=== PATIENT | female | born 1970 | race Caucasian/White ===

== ENCOUNTER → 2016-09-15 | Outpatient (CLI) | payer OTHER ==
--- NOTE | 2016-09-15 11:00 | US ---
EXAMINATION TYPE: US thyroid st tissue head/neck DATE OF EXAM: 09/15/2016 10:54 AM COMPARISON: NONE CLINICAL HISTORY: hoarseness, laryngitis. GLAND SIZE: Right Lobe: 3.9 x 1.4 x 1.0 cm Overall Parenchyma: homogenous Left Lobe: 3.4 x 1.2 x 1.2 cm Overall Parenchyma: homogeneous Isthmus Thickness: 0.2 cm NODULES RIGHT: # of nodules measured on right: 0 LEFT: # of nodules measured on left: 0 ISTHMUS: # of nodules measured in the isthmus: 0 . Bilateral neck scanned, no abnormal lymphadenopathy noted. IMPRESSION: Normal thyroid SONOGRAPHIC PATTERNS, ESTIMATED MALIGNANCY RISK AND FNA GUIDANCE FOR THYROID NODULES Sonographic Pattern: Benign Ultrasound Features: Purely Cystic Nodules (No Solid Component) Estimated Risk Of Malignancy, %: <1 FNA Size Cutoff (Largest Dimension): No Biopsy Sonographic Pattern: Very Low Suspicion Ultrasound Features: Spongiform Or Partially Cystic Nodules Without Any Of The Sonographic Features Described In Low, Inte rmediate Or High Suspicion Patterns. Estimated Risk Of Malignancy, %: <3 FNA Size Cutoff (Largest Dimension): Recommend FNA At > 2cm Or Observation Without FNA Sonographic Pattern: Low Suspicion Ultrasound Features: Isoechoic Or Hyperechoic Solid Nodule, Or Partially Cystic Nodule With Eccentric Solid Areas, Without Microcalcification, Irregular Margin Or Ete, Or Taller Than Wide Shape. Estimated Risk Of Malignancy, %: 5-10 FNA Size Cutoff (Largest Dimension): Recommend FNA At > 1.5cm Sonographic Pattern: Intermediate Suspicion Ultrasound Features: Hypoechoic Solid Nodule With Smooth Margins Without Microcalcifications, Ete, Or Taller Than Wide Sha pe. Estimated Risk Of Malignancy, %: 10-20 FNA Size Cutoff (Largest Dimension): Recommend FNA At > 1cm Sonographic Pattern: High Suspicion Ultrasound Features: Solid Hypoechoic Nodule Or Solid Hypoechoic Component Of A Partially Cystic Nodule With One Or More O f The Following Features: Irregular Margins (Infiltrative, Microlobulated), Microcalcifications, Tall er Than Wide Shape, Rim Calcifications With Small Extrusive Soft Tissue Component, Evidence Of Ete Estimated Risk Of Malignancy, %: >70-90 FNA Size Cutoff (Largest Dimension): Recommend FNA At > 1cm
== END | disposition home or self-care (01) ==
LOC: RADUSWWP 10:42
PROVIDERS: ATTEND Family Medicine
DX: J04.0 Acute laryngitis (principal); R49.0 Dysphonia
CPT/HCPCS: 76536

== ENCOUNTER 2017-01-15 17:01 | Emergency (ER) | payer OTHER ==
[2017-01-15] MEDS ORDERED: KETOROLAC 30 MG/ML 1 ML VIAL IVP STA (17:43)
[2017-01-15] MEDS ORDERED: SODIUM CHLORIDE 0.9% 1,000 ML IV STA (17:43)
[2017-01-15] MEDS ORDERED: DICYCLOMINE 10 MG/ML 2 ML AMP IM STA ×2 (17:43→19:16)
--- NOTE | 2017-01-15 17:48 | ED ---
Abdominal Pain HPI - General Chief Complaint: Abdominal Pain Stated Complaint: Abd pain Time Seen by Provider: 01/15/17 17:38 Source: patient, RN notes reviewed Mode of arrival: ambulatory - History of Present Illness Initial Comments: 46-year-old female presents to the emergency department with a chief complaint abdominal pain. Patient states epigastric abdominal pain that shoots into her pelvic region. Patient states she bends forward. Patient states that if she presses on the area feels better. Patient states has been no nausea vomiting no changes in bowel or bladder habits with this. Patient denies any fever chills cough cold or anypatient states she was concerned due to her continued pain and discomfort so she thought that she should be evaluated.Patient denies any recent fever, chills, shortness of breath, chest pain, back pain, nausea vomiting, numbness or tingling, dysuria or hematuria, constipation or diarrhea, headaches or visual changes, or any other current symptoms. - Related Data Home Medications Medication Instructions Recorded Confirmed Loratadine [Claritin] 10 mg PO DAILY 01/15/17 01/15/17 Omeprazole 20 mg PO BID 01/15/17 01/15/17 Previous Rx's Medication Instructions Recorded Dicyclomine [Bentyl] 10 mg PO TID #20 capsule 01/15/17 Ibuprofen [Motrin] 600 mg PO Q6HR PRN #20 tab 01/15/17 Allergies Allergy/AdvReac Type Severity Reaction Status Date / Time codeine Allergy Unknown Verified 01/15/17 17:55 Childhood Review of Systems ROS Statement: Those systems with pertinent positive or pertinent negative responses have been documented in the HPI. ROS Other: All systems not noted in ROS Statement are negative. Past Medical History Past Medical History: GERD/Reflux History of Any Multi-Drug Resistant Organisms: None Reported Past Surgical History: Adenoidectomy, Tonsillectomy Additional Past Surgical History / Comment(s): LEFT KNEE Past Psychological History: No Psychological Hx Reported Smoking Status: Never smoker Past Alcohol Use History: None Reported Past Drug Use History: None Reported General Exam - General Exam Comments Initial Comments: General: The patient is awake and alert, in no distress, and does not appear acutely ill. Eye: Pupils are equal, round and reactive to light, extra-ocular movements are intact; there is normal conjunctiva bilaterally. No signs of icterus. Ears, nose, mouth and throat: There are moist mucous membranes and no oral lesions. Neck: The neck is supple, there is no tenderness . Cardiovascular: There is a regular rate and rhythm. No murmur, rub or gallop is appreciated. Respiratory: Lungs are clear to auscultation, respirations are non-labored, breath sounds are equal. No wheezes, stridor, rales, or rhonchi. Gastrointestinal: Soft, non-distended, mild left upper quadrant tenderness of the abdomen without masses or organomegaly noted. There is no rebound or guarding present. No CVA tenderness. Bowel sounds are unremarkable. Back: There is no tenderness to palpation in the midline. There is no obvious deformity. No rashes noted. Musculoskeletal: Normal ROM, no tenderness, There is no pedal edema. There is no calf tenderness or swelling. Sensation intact. Pulses equal bilaterally 2+. Neurological: CN II-XII intact, There are no obvious motor or sensory deficits. Coordination appears grossly intact. Speech is normal. Skin: Skin is warm and dry and no rashes or lesions are noted. Psychiatric: Cooperative, appropriate mood & affect, normal judgment. Course Vital Signs 01/15/17 01/15/17 01/15/17 17:33 18:05 18:36 Temperature 97.8 F 98.0 F 98.2 F Pulse Rate 86 75 83 Respiratory 18 16 16 Rate Blood Pressure 107/78 117/68 113/76 O2 Sat by Pulse 100 95 97 Oximetry Medical Decision Making - Medical Decision Making 46-year-old smokes the emergency department chief complaint abdominal pain. This time labwork was reviewed Acute Processes. Patient's Abdomen Is Soft and Nontender and Reevaluation. This Time We Discussed the Possible Etiologies for the Pain. We Did Discuss Return Parameters and Follow-Up. We Discussed All the Patient's Questions. She Stated That She Understood and Is in Agreement with Plan. This Time She Will Be Discharged Home. - Lab Data Result diagrams: 01/15/17 18:30 01/15/17 18:30 Lab Results 01/15/17 01/15/17 01/15/17 Range/Units 18:30 18:30 18:30 WBC 8.7 (3.8-10.6) k/uL RBC 4.27 (3.80-5.40) m/uL Hgb 13.4 (11.4-16.0) gm/dL Hct 39.2 (34.0-46.0) % MCV 91.8 (80.0-100.0) fL MCH 31.4 (25.0-35.0) pg MCHC 34.2 (31.0-37.0) g/dL RDW 12.1 (11.5-15.5) % Plt Count 198 (150-450) k/uL Neutrophils % 66 % Lymphocytes % 25 % Monocytes % 5 % Eosinophils % 2 % Basophils % 1 % Neutrophils # 5.7 (1.3-7.7) k/uL Lymphocytes # 2.2 (1.0-4.8) k/uL Monocytes # 0.4 (0-1.0) k/uL Eosinophils # 0.2 (0-0.7) k/uL Basophils # 0.1 (0-0.2) k/uL Sodium 140 (137-145) mmol/L Potassium 3.9 (3.5-5.1) mmol/L Chloride 107 (98-107) mmol/L Carbon Dioxide 20 L (22-30) mmol/L Anion Gap 13 mmol/L BUN 15 (7-17) mg/dL Creatinine 0.50 L (0.52-1.04) mg/dL Est GFR (MDRD) Af Amer >60 (>60 ml/min/1.73 sqM) Est GFR (MDRD) Non-Af >60 (>60 ml/min/1.73 sqM) Glucose 96 (74-99) mg/dL Calcium 9.3 (8.4-10.2) mg/dL Total Bilirubin 0.6 (0.2-1.3) mg/dL AST 27 (14-36) U/L ALT 24 (9-52) U/L Alkaline Phosphatase 64 (38-126) U/L Total Protein 7.4 (6.3-8.2) g/dL Albumin 4.4 (3.5-5.0) g/dL Amylase 66 (30-110) U/L Lipase 107 (23-300) U/L Urine Color Yellow Urine Appearance Cloudy H (Clear) Urine pH 5.5 (5.0-8.0) Ur Specific [place] 1.026 (1.001-1.035) Urine Protein Trace H (Negative) Urine Glucose (UA) Negative (Negative) Urine Ketones Negative (Negative) Urine Blood Small H (Negative) Urine Nitrite Negative (Negative) Urine Bilirubin Negative (Negative) Urine Urobilinogen <2.0 (<2.0) mg/dL Ur Leukocyte Esterase Small H (Negative) Urine RBC 4 (0-5) /hpf Urine WBC 6 H (0-5) /hpf Ur Squamous Epith Cells 15 H (0-4) /hpf Amorphous Sediment Few H (None) /hpf Hyaline Casts 3 H (0-2) /lpf Urine Mucus Few H (None) /hpf Urine HCG, Qual (Not Detectd) 01/15/17 Range/Units 18:30 WBC (3.8-10.6) k/uL RBC (3.80-5.40) m/uL Hgb (11.4-16.0) gm/dL Hct (34.0-46.0) % MCV (80.0-100.0) fL MCH (25.0-35.0) pg MCHC (31.0-37.0) g/dL RDW (11.5-15.5) % Plt Count (150-450) k/uL Neutrophils % % Lymphocytes % % Monocytes % % Eosinophils % % Basophils % % Neutrophils # (1.3-7.7) k/uL Lymphocytes # (1.0-4.8) k/uL Monocytes # (0-1.0) k/uL Eosinophils # (0-0.7) k/uL Basophils # (0-0.2) k/uL Sodium (137-145) mmol/L Potassium (3.5-5.1) mmol/L Chloride (98-107) mmol/L Carbon Dioxide (22-30) mmol/L Anion Gap mmol/L BUN (7-17) mg/dL Creatinine (0.52-1.04) mg/dL Est GFR (MDRD) Af Amer (>60 ml/min/1.73 sqM) Est GFR (MDRD) Non-Af (>60 ml/min/1.73 sqM) Glucose (74-99) mg/dL Calcium (8.4-10.2) mg/dL Total Bilirubin (0.2-1.3) mg/dL AST (14-36) U/L ALT (9-52) U/L Alkaline Phosphatase (38-126) U/L Total Protein (6.3-8.2) g/dL Albumin (3.5-5.0) g/dL Amylase (30-110) U/L Lipase (23-300) U/L Urine Color Urine Appearance (Clear) Urine pH (5.0-8.0) Ur Specific [place] (1.001-1.035) Urine Protein (Negative) Urine Glucose (UA) (Negative) Urine Ketones (Negative) Urine Blood (Negative) Urine Nitrite (Negative) Urine Bilirubin (Negative) Urine Urobilinogen (<2.0) mg/dL Ur Leukocyte Esterase (Negative) Urine RBC (0-5) /hpf Urine WBC (0-5) /hpf Ur Squamous Epith Cells (0-4) /hpf Amorphous Sediment (None) /hpf Hyaline Casts (0-2) /lpf Urine Mucus (None) /hpf Urine HCG, Qual Not Detected (Not Detectd) - Radiology Data Radiology results: report reviewed, image reviewed Disposition Clinical Impression: Abdominal pain Disposition: HOME SELF-CARE Condition: Stable Instructions: Abdominal Pain (ED) Additional Instructions: Please use medication as discussed. Please follow up with family doctor if symptoms have not improved over the next two days. Please return to the emergency room if your symptoms increase or worsen or for any other concerns. Prescriptions: Dicyclomine [Bentyl] 10 mg PO TID #20 capsule Ibuprofen [Motrin] 600 mg PO Q6HR PRN #20 tab PRN Reason: Pain Referrals: Obdulia Key MD [Primary Care Provider] - 1-2 days Time of Disposition: 19:32
[2017-01-15 18:06] VITALS: RESP 16
[2017-01-15 18:38] VITALS: TEMP 98.2
[2017-01-15 18:42] LABS: Amorphous Sediment,Urine Few /hpf; Appearance,Urine Cloudy (Clear); Bilirubin,Urine Negative (Negative); Glucose,Urine (UA) Negative (Negative); Ketones,Urine Negative (Negative); Leukocyte Esterase,Urine Small (Negative); Mucus,Urine Few /hpf; Nitrite,Urine Negative (Negative); PH, Urine 5.5 (5.0-8.0); Particle Count 13190; Protein,Urine Trace (Negative); RBC,Urine 4 /hpf (0-5); Specific Gravity,Urine 1.026 (1.001-1.035); Squamous Epithelial Cell,Urine 15 /hpf (0-4); UA Billing (MACRO vs. MICRO) MICRO; Urobilinogen,Urine <2.0 mg/dL (<2.0); WBC,Urine 6 /hpf (0-5)
[2017-01-15 18:54] LABS: ALT 24 U/L (9-52); AST 27 U/L (14-36); Alkaline Phosphatase 64 U/L (38-126); Amylase 66 U/L (30-110); Anion Gap 13 mmol/L; Blood Urea Nitrogen 15 mg/dL (7-17); Calcium 9.3 mg/dL (8.4-10.2); Carbon Dioxide 20 mmol/L (22-30); Chloride 107 mmol/L (98-107); Glucose 96 mg/dL (74-99); Non-African American GFR(MDRD) >60 (>60 ml/min/1.73 sqM); Potassium 3.9 mmol/L (3.5-5.1); Sodium 140 mmol/L (137-145); Total Bilirubin 0.6 mg/dL (0.2-1.3); Total Protein 7.4 g/dL (6.3-8.2)
[2017-01-15 18:57] LABS: Basophils # (A) 0.1 k/uL (0-0.2); Basophils % (A) 1 %; CH 31.6; CHCM 34.5; Eosinophils # (A) 0.2 k/uL (0-0.7); Eosinophils % (A) 2 %; HCT 39.2 % (34.0-46.0); HGB 13.4 gm/dL (11.4-16.0); Luc # (Auto) 0.14; Luc % (Auto) 2; Lymphocytes # (A) 2.2 k/uL (1.0-4.8); Lymphocytes % (A) 25 %; MCH 31.4 pg (25.0-35.0); MCHC 34.2 g/dL (31.0-37.0); MCV 91.8 fL (80.0-100.0); Mean Platelet Volume 9.1; Monocytes # (A) 0.4 k/uL (0-1.0); Monocytes % (A) 5 %; Neutrophils # (A) 5.7 k/uL (1.3-7.7); Neutrophils % (A) 66 %; RBC 4.27 m/uL (3.80-5.40); RDW 12.1 % (11.5-15.5); WBC 8.7 k/uL (3.8-10.6); WBC (Perox) 8.71
--- NOTE | 2017-01-15 19:18 | XR ---
EXAMINATION TYPE: XR KUB DATE OF EXAM: 01/15/2017 7:14 PM COMPARISON: NONE HISTORY: Abdominal pain TECHNIQUE: Upright abdominal radiograph was obtained and a single KUB projection. FINDINGS: There is a nonobstructive bowel gas pattern. There is an S-shaped scoliotic curvature of th e thoracolumbar spine. No radiopaque calculi are seen within the abdomen or pelvis. No gross evidence of organomegaly. IMPRESSION: 1. Nonobstructive bowel gas pattern. 2. No radiopaque calculi within the abdomen or pelvis.
[2017-01-15 20:02] VITALS: BP 132/70; PULSE 81
== END 2017-01-15 20:02 | disposition home or self-care (01) ==
LOC: EC 17:01
DX: R10.12 Left upper quadrant pain (principal); R10.13 Epigastric pain; K21.9 Gastro-esophageal reflux disease without esophagitis; Z79.899 Other long term (current) drug therapy; Z88.5 Allergy status to narcotic agent
CPT/HCPCS: 99284; 96374; 96372; 36415; 80053; 82150; 83690; 85025; 81001; 81025; 74000; J0500; J1885

== ENCOUNTER → 2017-01-24 | Outpatient (CLI) | payer OTHER ==
--- NOTE | 2017-01-24 16:45 | CT ---
EXAMINATION TYPE: CT abdomen pelvis w con DATE OF EXAM: 01/24/2017 4:12 PM REFERENCE: NONE HISTORY: R10.33 Periumbilical Abd Pain HISTORY: Pt states of severe umbilical pain x1 week. REFERENCE: NONE CT DLP: 443.8 mGy Automated exposure control for dose reduction was used. TECHNIQUE: Helical acquisition through the abdomen and pelvis was obtained following the oral ingesti on of with Oral Contrast and following intravenous administration of 100 mL of Omnipaque 300. The tyrell a was reformatted in axial, coronal and sagittal projections. FINDINGS: There is a mild pectus excavatum deformity. Visualized portions of the lungs are clear. There is no pleural or pericardial fluid. The heart is no t enlarged. Within the abdomen, the liver is normal in size. There is an ill-defined 7.1 mm lesion in the posteri or segment of the right lobe of the liver is too small to characterize accurately. The gallbladder is partially contracted. The spleen is normal. Both adrenal glands are normal. There is a 6.7 mm lesion in the lower pole of the left kidney. This is too small to characterize accu rately. The pancreas is unremarkable. There is no significant retroperitoneal, iliac or inguinal adenopathy. There is follicular change in both ovaries. Uterus is unremarkable. The bladder is quite distended. There is no significant diverticular change and there is no radiographic evidence of diverticulitis. The appendix is normal. Small bowel loops are unremarkable. There is no free fluid and no free air. There is an 8.3 mm sclerotic focus in the right side of the sacrum. This likely represents a bone isl and. There is a second 6.1 mm sclerotic focus in the right iliac bone. No other lesions are seen. The re is mild facet arthropathy in the L5-S1 facets. IMPRESSION: 1. ILL-DEFINED 7.1 MM LESION IN THE POSTERIOR SEGMENT OF THE RIGHT LOBE OF THE LIVER. ABDOMINAL ULTRA SOUND IS SUGGESTED. 2. SMALL LESION IN THE LOWER POLE OF THE LEFT KIDNEY. THIS COULD BE FURTHER ASSESSED WITH ULTRASOUND WELL. 3. MILD FACET ARTHROPATHY IN THE L5-S1 FACETS.
== END | disposition home or self-care (01) ==
LOC: RADCTMAIN 15:17
PROVIDERS: ATTEND Family Medicine
DX: K76.9 Liver disease, unspecified (principal); N28.9 Disorder of kidney and ureter, unspecified
CPT/HCPCS: 74177; Q9967

== ENCOUNTER → 2017-06-19 | Outpatient (CLI) | payer OTHER ==
--- NOTE | 2017-06-19 11:54 | US ---
EXAMINATION TYPE: US abdomen complete DATE OF EXAM: 06/19/2017 COMPARISON: CT 2017 CLINICAL HISTORY: Liver Lesion K76.9,N28.1 Kidney Cysts. Patient stated is taking medication for nando rgies, anti anxiety, acid reflux EXAM MEASUREMENTS: Liver Length: 12.8 cm Gallbladder Wall: 0.2 cm CBD: 0.2 cm Spleen: 9.1 cm Right Kidney: 10.1 x 5.8 x 4.5 cm Left Kidney: 11.4 x 4.9 x 5.4 cm Pancreas: Tail obscured by overlying bowel gas Liver: fatty as is hyperechoic to right renal cortex; no liver lesion is seen today due to rib inter ference and gas interference from full stomach Gallbladder: wnl Evidence for sonographic Enciso's sign: No CBD: wnl Spleen: wnl Right Kidney: prominent renal pelvis or extrarenal pelvis Left Kidney: hyperechoic oval focus seen in lower cortex = 0.9 x 0.8 x 0.5cm and may correspond to C T finding (consider finding as angiomyolipoma) . Ectatic lower pole renal vasculature also seen on th e prior CT. Upper IVC: wnl Abd Aorta: wnl Bladder imaged as patient was prepped: bilateral ureteral jets were seen; bladder appears wnl; post void volume = 14.7ml and is wnl. IMPRESSION: 1. 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 2. Mildly coarsened hepatic echotexture most commonly relates to mild hepatic steatosis. The previous ly seen 7 mm hepatic lesion is not demonstrated sonographically. 3. No post void residual within the urinary bladder.
== END | disposition home or self-care (01) ==
LOC: RADUSWWP 10:05
PROVIDERS: ATTEND Family Medicine
DX: N28.9 Disorder of kidney and ureter, unspecified (principal); R93.2 Abnormal findings on diagnostic imaging of liver and biliary tract
CPT/HCPCS: 76700; 76857

== ENCOUNTER → 2017-10-23 | Outpatient (CLI) | payer OTHER | END | disposition home or self-care (01) | LOC: LABMAIN 10:10 | PROVIDERS: ATTEND Family Medicine | DX: R09.81 Nasal congestion (principal); R05 Cough | CPT/HCPCS: 87502 ==

== ENCOUNTER 2018-04-29 12:25 | Emergency (ER) | payer OTHER ==
[2018-04-29 12:44] VITALS: BP 119/78; PULSE 95; RESP 18; TEMP 98.3
--- NOTE | 2018-04-29 13:33 | ED ---
URI HPI - General Chief Complaint: Upper Respiratory Infection Stated Complaint: No voice, Sinus infection Time Seen by Provider: 04/29/18 13:06 Source: patient, RN notes reviewed Mode of arrival: ambulatory Limitations: no limitations - History of Present Illness Initial Comments: 47-year-old female presents emergency Department chief complaint of loss of her voice, sinus congestion. Patient's had recurrent issues with this in the past. She states that she has seen multiple people in the past with no acute findings. Patient states normally she resolves. Patient states that she saw her PCP started on eardrops, promethazine and nystatin because she had evidence of thrush. Patient states that has been one week with no improvement she states that she saw her PCP today and was for her to the emergency Department. Patient reports no fever, chills, fatigue, night sweats, chest pain, shortness breath, headache or dizziness. Patient has no difficulty swallowing. - Related Data Home Medications Medication Instructions Recorded Confirmed Naqqzxlv-Ftiiqjabq-Eq Otic 5 drops BOTH EARS TID 04/29/18 04/29/18 [Cortisporin Otic Soln] Nystatin 100,000 Unit/ml Susp 500,000 unit PO QID 04/29/18 04/29/18 [Mycostatin Oral Susp] Promethazine/Dextromethorphan 5 ml PO Q6H PRN 04/29/18 04/29/18 [Promethazine-Dm Syrup] Sertraline [Zoloft] 50 mg PO DAILY 04/29/18 04/29/18 Vienva 1 tab PO DAILY 04/29/18 04/29/18 Previous Rx's Medication Instructions Recorded Azithromycin [Zithromax Z-pack] 0 mg PO DIRECTED #1 pack 04/29/18 Fluticasone Nasal [place] [Flonase 2 spr EA NOSTRIL DAILY #1 bottle 04/29/18 Nasal [place]] predniSONE 50 mg PO DAILY #5 tab 04/29/18 Allergies Allergy/AdvReac Type Severity Reaction Status Date / Time No Known Allergies Allergy Verified 04/29/18 12:54 Review of Systems ROS Statement: Those systems with pertinent positive or pertinent negative responses have been documented in the HPI. ROS Other: All systems not noted in ROS Statement are negative. Past Medical History Past Medical History: GERD/Reflux History of Any Multi-Drug Resistant Organisms: None Reported Past Surgical History: Adenoidectomy, Tonsillectomy Additional Past Surgical History / Comment(s): LEFT KNEE Past Psychological History: No Psychological Hx Reported Smoking Status: Never smoker Past Alcohol Use History: Occasional Past Drug Use History: None Reported General Exam Limitations: no limitations General appearance: alert, in no apparent distress Head exam: Present: atraumatic, normocephalic, normal inspection Eye exam: Present: normal appearance, PERRL, EOMI. Absent: scleral icterus, conjunctival injection, periorbital swelling ENT exam: Present: normal exam, normal oropharynx, mucous membranes moist, TM's normal bilaterally, normal external ear exam Neck exam: Present: normal inspection, full ROM. Absent: tenderness, meningismus, lymphadenopathy Respiratory exam: Present: normal lung sounds bilaterally. Absent: respiratory distress, wheezes, rales, rhonchi, stridor Cardiovascular Exam: Present: regular rate, normal rhythm, normal heart sounds. Absent: systolic murmur, diastolic murmur, rubs, gallop, clicks Neurological exam: Present: alert, oriented X3, CN II-XII intact Skin exam: Present: warm, dry, intact, normal color. Absent: rash Course Vital Signs 04/29/18 12:40 Temperature 98.3 F Pulse Rate 95 Respiratory 18 Rate Blood Pressure 119/78 O2 Sat by Pulse 99 Oximetry Medical Decision Making - Medical Decision Making 47-year-old female presented for laryngitis symptoms, sinus congestion. Patient 's had recurrent issues she has seen multiple specialists with no acute findings. Patient symptoms may related to viral bacterial infection should be given a short course antibiotics, steroids and Flonase. She can follow-up with ENT and return for any worsening symptoms Disposition Clinical Impression: Acute laryngitis, Sinus congestion Disposition: HOME SELF-CARE Condition: Stable Instructions: Laryngitis (ED) Additional Instructions: Please return to the Emergency Department if symptoms worsen or any other concerns. Prescriptions: Azithromycin [Zithromax Z-pack] 0 mg PO DIRECTED #1 pack Fluticasone Nasal [place] [Flonase Nasal [place]] 2 spr EA NOSTRIL DAILY #1 bottle predniSONE 50 mg PO DAILY #5 tab Is patient prescribed a controlled substance at d/c from ED?: No Referrals: Obdulia Key MD [Primary Care Provider] - 1-2 days Time of Disposition: 14:18
--- NOTE | 2018-04-29 14:10 | XR ---
EXAMINATION TYPE: XR chest 2V DATE OF EXAM: 04/29/2018 COMPARISON: NONE HISTORY: Chest pain TECHNIQUE: Frontal and lateral views of the chest are obtained. FINDINGS: There is no focal air space opacity. No evidence for pneumothorax. No pleural effusion. The cardiac silhouette size is within normal limits. The osseous structures are grossly intact. Thoracic scoliosis convex to the left. IMPRESSION: 1. No acute cardiopulmonary process.
--- NOTE | 2018-04-29 14:10 | XR ---
EXAMINATION TYPE: XR soft tissue neck DATE OF EXAM: 04/29/2018 COMPARISON: NONE HISTORY: TECHNIQUE: 2 views of the soft tissues of the neck are submitted. FINDINGS: The airway is patent. Normal appearing epiglottis. Retropharyngeal soft tissues are withi n normal limits. No evidence for radiopaque foreign body. IMPRESSION: Negative study
== END 2018-04-29 14:33 | disposition home or self-care (01) ==
LOC: EC 12:25
DX: J04.0 Acute laryngitis (principal); R09.81 Nasal congestion; B37.9 Candidiasis, unspecified; Z79.3 Long term (current) use of hormonal contraceptives; Z79.899 Other long term (current) drug therapy; Z90.89 Acquired absence of other organs
CPT/HCPCS: 70360; 71046; 99283

== ENCOUNTER → 2018-07-02 | Outpatient (CLI) | payer OTHER ==
--- NOTE | 2018-07-02 10:29 | CT ---
EXAMINATION TYPE: CT soft tissue neck w con DATE OF EXAM: 07/02/2018 COMPARISON: None HISTORY: Hoarseness and difficulty swallowing for two days with multiple similar episodes over the la st [address] DLP: 318 mGycm CONTRAST: CT scan of the neck is performed with IV Contrast, patient injected with 100 mL of Isovue 300. Contrast enhanced CT of the neck was performed from the skull base through the lung apices. AIRWAY: The supraglottic, glottic, and subglottic portions of the airway appear patent and free of mass. SALIVARY GLANDS: The submandibular and parotid glands are free of mass or inflammatory process. THYROID GLAND: No nodules or masses seen. LYMPH NODES: No adenopathy seen greater than 1cm. LUNG APICES: No nodule or mass is seen. OTHER: Vascular structures are patent. No significant degenerative change of the cervical spine. N o abscess seen. IMPRESSION: No distinct abnormality appreciated to the patient's symptoms. Consider direct visualization if sympt oms persist.
== END | disposition home or self-care (01) ==
LOC: RADCTMAIN 09:52
PROVIDERS: ATTEND Family Medicine
DX: R47.89 Other speech disturbances (principal); R49.1 Aphonia; R53.83 Other fatigue
CPT/HCPCS: 70491; Q9967

== ENCOUNTER → 2018-07-30 | Outpatient (CLI) | payer OTHER ==
[2018-07-30 16:14] LABS: Basophils % (A) 0 %; Eosinophils # (A) 0.3 k/uL (0-0.7); Eosinophils % (A) 4 %; HCT 36.8 % (34.0-46.0); HGB 12.8 gm/dL (11.4-16.0); Lymphocytes # (A) 1.6 k/uL (1.0-4.8); Lymphocytes % (A) 22 %; MCH 32.1 pg (25.0-35.0); MCHC 34.9 g/dL (31.0-37.0); MCV 92.1 fL (80.0-100.0); Mean Platelet Volume 6.9; Monocytes # (A) 0.3 k/uL (0-1.0); Monocytes % (A) 5 %; Neutrophils % (A) 68 %; Platelet Count 297 k/uL (150-450); RBC 3.99 m/uL (3.80-5.40); RDW 12.4 % (11.5-15.5); WBC 7.3 k/uL (3.8-10.6)
[2018-07-30 16:40] LABS: Appearance,Urine Cloudy (Clear); Bacteria,Urine Rare /hpf; Bilirubin,Urine Negative (Negative); Blood,Urine Small (Negative); Color,Urine Yellow; Glucose,Urine (UA) Negative (Negative); Ketones,Urine Negative (Negative); Leukocyte Esterase,Urine Trace (Negative); Mucus,Urine Rare /hpf; Nitrite,Urine Negative (Negative); PH, Urine 6.5 (5.0-8.0); Protein,Urine Negative (Negative); RBC,Urine 11 /hpf (0-5); Specific Gravity,Urine 1.016 (1.001-1.035); Squamous Epithelial Cell,Urine 8 /hpf (0-4); Urobilinogen,Urine <2.0 mg/dL (<2.0); WBC,Urine 2 /hpf (0-5)
[2018-07-30 17:10] LABS: Erythrocyte Sedimentation Rate 16 mm/hr (0-20)
[2018-07-31 04:52] LABS: Rheumatoid Factor 5 IU/mL (0-15)
[2018-07-31 04:57] LABS: Albumin 4.6 g/dL (3.80-4.90); Anion Gap 10.3 mmol/L (4.00-12.00); C Reactive Protein 0.6 mg/dL (0.0-0.8); Calcium 9.8 mg/dL (8.7-10.3); Carbon Dioxide 22.7 mmol/L (21.6-31.8); Globulin 2.3 g/dL (2.1-3.7); Total Bilirubin 0.4 mg/dL (0.3-1.2); Total Protein 6.9 g/dL (6.2-8.2); Uric Acid 4.3 mg/dL (2.9-7.7)
[2018-07-31 04:58] LABS: Anti-DNA, DS unit <1.0 IU/mL; Cardiolipin Ab IgG Interp NEGATIVE (NEGATIVE); Cardiolipin Ab IgM Interp NEGATIVE (NEGATIVE); Cardiolipin IgA Antibody 1.2 U/mL; Cardiolipin IgM Antibody 0.3 U/mL; Cyclic Citrullinated Pep IgG NEGATIVE (NEGATIVE); DNA Double-Stranded NEGATIVE (NEGATIVE); RNP 0.4 AI; Scleroderma SC-70 Ab <0.2 AI
[2018-07-31 04:59] LABS: Vitamin D 25 Hydroxy 28.3 ng/mL (30.0-100.0)
[2018-07-31 05:05] LABS: T4, Free (Free Thyroxine) 0.9 ng/dL (0.80-1.80)
[2018-07-31 05:29] LABS: Hepatitis C IgG Antibody Non-Reactive (Non-Reactive)
[2018-07-31 05:52] LABS: Angiotensin-1 Converting Enz. 52 U/L (8-52)
[2018-07-31 13:04] LABS: Albumin 4.19 g/dL (3.80-4.90); Gamma Globulin 0.95 g/dL (0.70-1.50)
[2018-07-31 13:06] LABS: APTT 36 Sec(s) (<43); Dilute Russell Viper Venom 39 Sec(s) (<44)
[2018-07-31 14:11] LABS: C-ANCA <1:20 Titer (<1:20); P-ANCA <1:20 Titer (<1:20)
[2018-08-01 04:28] LABS: Aldolase 5.6 U/L (1.2-7.6)
[2018-08-01 11:22] LABS: HLA B27 NEGATIVE
== END | disposition home or self-care (01) ==
LOC: LABWHC1 13:07
PROVIDERS: ATTEND Physician Assistant Medical
DX: R76.8 Other specified abnormal immunological findings in serum (principal)
CPT/HCPCS: 36415; 80053; 81001; 82085; 82164; 82306; 82550; 83883; 84165; 84439; 84443; 84550; 85025; 85613; 85652; 85730; 86038; 86140; 86147; 86160; 86162; 86200; 86225; 86235; 86255; 86334; 86431; 86803; 86812; 87340

== ENCOUNTER 2019-10-04 14:00 | Emergency (ER) | payer OTHER ==
[2019-10-04] MEDS ORDERED: SODIUM CHLORIDE 0.9% 500 ML 500 ML IV STA (14:41)
[2019-10-04] MEDS ORDERED: SODIUM CHLORIDE 0.9% 1,000 ML IV STA (14:42)
--- NOTE | 2019-10-04 14:42 | ED ---
General Adult HPI - General Chief complaint: Abdominal Pain Stated complaint: Abd pain Time Seen by Provider: 10/04/19 14:23 Source: patient, RN notes reviewed Mode of arrival: ambulatory Limitations: no limitations - History of Present Illness Initial comments: 49-year-old female without any significant past medical history or surgical history presents to the emergency determine for chief complaint of lower abdominal pain. Patient states this started yesterday morning and has been worsening. States it is intermittent in nature and comes and goes. States the pain is mostly on the left side of her lower abdomen but does have some pain on the right side as well. Denies any upper abdominal pain. States she had a normal bowel movement earlier today. Denies nausea vomiting. Denies fevers or chills. No colonoscopy in the past.Patient has no other complaints at this time including shortness of breath, chest pain, nausea or vomiting, headache, or visual changes. - Related Data Home Medications Medication Instructions Recorded Confirmed Qorcrmac-Eqtjrfqwr-Ai Otic 5 drops BOTH EARS TID 04/29/18 04/29/18 [Cortisporin Otic Soln] Nystatin 100,000 Unit/ml Susp 500,000 unit PO QID 04/29/18 04/29/18 [Mycostatin Oral Susp] Promethazine/Dextromethorphan 5 ml PO Q6H PRN 04/29/18 04/29/18 [Promethazine-Dm Syrup] Sertraline [Zoloft] 50 mg PO DAILY 04/29/18 04/29/18 Vienva 1 tab PO DAILY 04/29/18 04/29/18 Previous Rx's Medication Instructions Recorded Azithromycin [Zithromax Z-pack] 0 mg PO DIRECTED #1 pack 04/29/18 Fluticasone Nasal [place] [Flonase 2 spr EA NOSTRIL DAILY #1 bottle 04/29/18 Nasal [place]] predniSONE 50 mg PO DAILY #5 tab 04/29/18 Allergies Allergy/AdvReac Type Severity Reaction Status Date / Time No Known Allergies Allergy Verified 04/29/18 12:54 Review of Systems ROS Statement: Those systems with pertinent positive or pertinent negative responses have been documented in the HPI. ROS Other: All systems not noted in ROS Statement are negative. Past Medical History Past Medical History: GERD/Reflux History of Any Multi-Drug Resistant Organisms: None Reported Past Surgical History: Adenoidectomy, Tonsillectomy Additional Past Surgical History / Comment(s): LEFT KNEE Past Psychological History: No Psychological Hx Reported Smoking Status: Never smoker Past Alcohol Use History: Occasional Past Drug Use History: None Reported General Exam Limitations: no limitations General appearance: alert, in no apparent distress Head exam: Present: atraumatic, normocephalic, normal inspection Eye exam: Present: normal appearance, PERRL, EOMI. Absent: scleral icterus, conjunctival injection, periorbital swelling ENT exam: Present: normal exam, mucous membranes moist Neck exam: Present: normal inspection, full ROM. Absent: tenderness, m eningismus, lymphadenopathy Respiratory exam: Present: normal lung sounds bilaterally. Absent: respiratory distress, wheezes, rales, rhonchi, stridor Cardiovascular Exam: Present: regular rate, normal rhythm, normal heart sounds. Absent: systolic murmur, diastolic murmur, rubs, gallop, clicks GI/Abdominal exam: Present: soft, tenderness (Left lower quadrant and right lower quadrant tenderness. Voluntary guarding of the left lower quadrant.), normal bowel sounds. Absent: distended, guarding, rebound, rigid Course Vital Signs 10/04/19 10/04/19 10/04/19 14:06 15:57 17:44 Temperature 98.0 F 98 F 98.1 F Pulse Rate 81 72 72 Respiratory 18 20 18 Rate Blood Pressure 118/74 121/77 136/86 O2 Sat by Pulse 100 100 100 Oximetry Medical Decision Making - Medical Decision Making CBC CMP unremarkable. Minimal transaminitis appears chronic. Urinalysis unremarkable. CT and pelvis with contrast was obtained. This shows a 4 cm heterogeneous cyst extraction within the right adnexa possibly hemorrhagic cyst given mild adjacent adnexal and cul-de-sac free fluid. Patient does have a history of cysts. There is also fullness in the region of the uterine cervix that may be physiologic. I did do a pelvic exam as directed visualization was indicated and I do not see any fluid. Patient did have some right adnexal tenderness. Trichomonas negative. Gonorrhea and chlamydia pending. Patient is feeling much better at this time. Case was discussed with Dr. Nix. Anus consistent with hemorrhagic cyst. Patient will follow-up with her primary care provider to ensure that this is resolving which she is aware. She will return if she has any worsening symptoms. - Lab Data Result diagrams: 10/04/19 14:54 10/04/19 14:54 Lab Results 10/04/19 10/04/19 10/04/19 Range/Units 14:38 14:38 14:54 WBC (3.8-10.6) k/uL RBC (3.80-5.40) m/uL Hgb (11.4-16.0) gm/dL Hct (34.0-46.0) % MCV (80.0-100.0) fL MCH (25.0-35.0) pg MCHC (31.0-37.0) g/dL RDW (11.5-15.5) % Plt Count (150-450) k/uL Neutrophils % % Lymphocytes % % Monocytes % % Eosinophils % % Basophils % % Neutrophils # (1.3-7.7) k/uL Lymphocytes # (1.0-4.8) k/uL Monocytes # (0-1.0) k/uL Eosinophils # (0-0.7) k/uL Basophils # (0-0.2) k/uL Sodium 138 (137-145) mmol/L Potassium 4.0 (3.5-5.1) mmol/L Chloride 103 (98-107) mmol/L Carbon Dioxide 27 (22-30) mmol/L Anion Gap 8 mmol/L BUN 14 (7-17) mg/dL Creatinine 0.65 (0.52-1.04) mg/dL Est GFR (CKD-EPI)AfAm >90 (>60 ml/min/1.73 sqM) Est GFR (CKD-EPI)NonAf >90 (>60 ml/min/1.73 sqM) Glucose 103 H (74-99) mg/dL Calcium 9.6 (8.4-10.2) mg/dL Total Bilirubin 0.5 (0.2-1.3) mg/dL AST 42 H (14-36) U/L ALT 46 H (4-34) U/L Alkaline Phosphatase 94 (38-126) U/L Total Protein 7.6 (6.3-8.2) g/dL Albumin 4.4 (3.5-5.0) g/dL Amylase 62 (30-110) U/L Lipase 130 (23-300) U/L Urine Color Yellow Urine Appearance Clear (Clear) Urine pH 6.0 (5.0-8.0) Ur Specific [place] 1.024 (1.001-1.035) Urine Protein Negative (Negative) Urine Glucose (UA) Negative (Negative) Urine Ketones Negative (Negative) Urine Blood Moderate H (Negative) Urine Nitrite Negative (Negative) Urine Bilirubin Negative (Negative) Urine Urobilinogen <2.0 (<2.0) mg/dL Ur Leukocyte Esterase Moderate H (Negative) Urine RBC 14 H (0-5) /hpf Urine WBC 3 (0-5) /hpf Ur Squamous Epith Cells 5 H (0-4) /hpf Hyaline Casts 1 (0-2) /lpf Urine Mucus Occasional H (None) /hpf Urine HCG, Qual Not Detected (Not Detectd) Trichomonas Ag (Rapid) (Negative) 10/04/19 10/04/19 Range/Units 14:54 17:33 WBC 8.1 (3.8-10.6) k/uL RBC 3.96 (3.80-5.40) m/uL Hgb 11.8 (11.4-16.0) gm/dL Hct 35.5 (34.0-46.0) % MCV 89.7 (80.0-100.0) fL MCH 29.7 (25.0-35.0) pg MCHC 33.1 (31.0-37.0) g/dL RDW 12.5 (11.5-15.5) % Plt Count 251 (150-450) k/uL Neutrophils % 69 % Lymphocytes % 23 % Monocytes % 4 % Eosinophils % 2 % Basophils % 0 % Neutrophils # 5.6 (1.3-7.7) k/uL Lymphocytes # 1.9 (1.0-4.8) k/uL Monocytes # 0.3 (0-1.0) k/uL Eosinophils # 0.2 (0-0.7) k/uL Basophils # 0.0 (0-0.2) k/uL Sodium (137-145) mmol/L Potassium (3.5-5.1) mmol/L Chloride (98-107) mmol/L Carbon Dioxide (22-30) mmol/L Anion Gap mmol/L BUN (7-17) mg/dL Creatinine (0.52-1.04) mg/dL Est GFR (CKD-EPI)AfAm (>60 ml/min/1.73 sqM) Est GFR (CKD-EPI)NonAf (>60 ml/min/1.73 sqM) Glucose (74-99) mg/dL Calcium (8.4-10.2) mg/dL Total Bilirubin (0.2-1.3) mg/dL AST (14-36) U/L ALT (4-34) U/L Alkaline Phosphatase (38-126) U/L Total Protein (6.3-8.2) g/dL Albumin (3.5-5.0) g/dL Amylase (30-110) U/L Lipase (23-300) U/L Urine Color Urine Appearance (Clear) Urine pH (5.0-8.0) Ur Specific [place] (1.001-1.035) Urine Protein (Negative) Urine Glucose (UA) (Negative) Urine Ketones (Negative) Urine Blood (Negative) Urine Nitrite (Negative) Urine Bilirubin (Negative) Urine Urobilinogen (<2.0) mg/dL Ur Leukocyte Esterase (Negative) Urine RBC (0-5) /hpf Urine WBC (0-5) /hpf Ur Squamous Epith Cells (0-4) /hpf Hyaline Casts (0-2) /lpf Urine Mucus (None) /hpf Urine HCG, Qual (Not Detectd) Trichomonas Ag (Rapid) Negative (Negative) Disposition Clinical Impression: Ovarian cyst Disposition: HOME SELF-CARE Condition: Good Instructions (If sedation given, give patient instructions): Ruptured Ovarian Cyst (ED) Additional Instructions: Please follow up with primary care in 1-[address] results with them as well. Return here to the emergency department if you have any worsening symptoms. Is patient prescribed a controlled substance at d/c from ED?: No Referrals: Obdulia Key MD [Primary Care Provider] - 1-2 days Time of Disposition: 17:38
[2019-10-04 15:09] LABS: Appearance,Urine Clear (Clear); Bilirubin,Urine Negative (Negative); Blood,Urine Moderate (Negative); Color,Urine Yellow; Glucose,Urine (UA) Negative (Negative); Hyaline Casts,Urine 1 /lpf (0-2); Ketones,Urine Negative (Negative); Leukocyte Esterase,Urine Moderate (Negative); Mucus,Urine Occasional /hpf; Nitrite,Urine Negative (Negative); Protein,Urine Negative (Negative); RBC,Urine 14 /hpf (0-5); Specific Gravity,Urine 1.024 (1.001-1.035); Squamous Epithelial Cell,Urine 5 /hpf (0-4); Urobilinogen,Urine <2.0 mg/dL (<2.0); WBC,Urine 3 /hpf (0-5)
[2019-10-04 15:16] LABS: Basophils % (A) 0 %; Eosinophils # (A) 0.2 k/uL (0-0.7); Eosinophils % (A) 2 %; HCT 35.5 % (34.0-46.0); HGB 11.8 gm/dL (11.4-16.0); Lymphocytes # (A) 1.9 k/uL (1.0-4.8); Lymphocytes % (A) 23 %; MCH 29.7 pg (25.0-35.0); MCHC 33.1 g/dL (31.0-37.0); MCV 89.7 fL (80.0-100.0); Mean Platelet Volume 7.1; Monocytes # (A) 0.3 k/uL (0-1.0); Monocytes % (A) 4 %; Neutrophils # (A) 5.6 k/uL (1.3-7.7); Neutrophils % (A) 69 %; Platelet Count 251 k/uL (150-450); RBC 3.96 m/uL (3.80-5.40); RDW 12.5 % (11.5-15.5); WBC 8.1 k/uL (3.8-10.6)
[2019-10-04 15:23] LABS: ALT 46 U/L (4-34); AST 42 U/L (14-36); African American GFR (CKD) >90 (>60 ml/min/1.73 sqM); Albumin 4.4 g/dL (3.5-5.0); Alkaline Phosphatase 94 U/L (38-126); Amylase 62 U/L (30-110); Anion Gap 8 mmol/L; Blood Urea Nitrogen 14 mg/dL (7-17); Calcium 9.6 mg/dL (8.4-10.2); Carbon Dioxide 27 mmol/L (22-30); Chloride 103 mmol/L (98-107); Glucose 103 mg/dL (74-99); Non-African American GFR(CKD) >90 (>60 ml/min/1.73 sqM); Sodium 138 mmol/L (137-145); Total Bilirubin 0.5 mg/dL (0.2-1.3); Total Protein 7.6 g/dL (6.3-8.2)
[2019-10-04] MEDS ORDERED: KETOROLAC 30 MG/ML 1 ML VIAL IVP STA (15:23)
[2019-10-04 15:59] VITALS: PULSE 72
--- NOTE | 2019-10-04 16:04 | CT ---
EXAMINATION TYPE: CT abdomen pelvis w con DATE OF EXAM: 10/04/2019 COMPARISON: 01/24/2017 HISTORY: 49-year-old female LLQ pain starting yesterday TECHNIQUE: Contiguous axial scanning of the abdomen and pelvis following administration of 100 ml Iso yoli 300 IV contrast. Delayed images through the kidneys and coronal/sagittal reconstructions perform ed. CT DLP: 900.9 mGycm Automated exposure control for dose reduction was used. FINDINGS: Heart size without pericardial effusion. Strandy atelectasis lower lungs without pleural effusion. Progressive diffuse hepatic steatosis with some focal fatty sparing anteriorly and at the carli hepat is. Portal venous system is patent. No biliary ductal dilatation. Gallbladder, adrenal glands, right kidney with extrarenal pelvis, spleen, and pancreas show no aggres sive study. Accessory artery and vein to the lower pole left kidney redemonstrated. Smaller accessory artery vein to the lower pole of the right kidney. Probably ingested greatest in the stomach. No dilated small bowel, free fluid, or free air. No mesenteric or retroperitoneal lymphadenopathy. Normal appendix. Mild stool burden. No pericolonic inflammatory change. Uterus anteverted. Left ovary is visualized. Heterogeneous cystic structure structure measuring 4.0 c m within the right adnexa. Adjacent mild right adnexal and cul-de-sac free fluid. There is some fulln ess in the cervix noted. Probable physiologic change. Mild circumferential bladder wall thickening and mild surrounding fat stranding. Bones: S-shaped scoliosis. Right L5 hemisacralization. Stable bone islands about the right SI joint. IMPRESSION: 1. A 4.0 CM HETEROGENEOUS CYSTIC STRUCTURE WITHIN THE RIGHT ADNEXA, POSSIBLE HEMORRHAGIC CYST GIVEN M ILD ADJACENT ADNEXAL AND CUL-DE-SAC FREE FLUID. FURTHER ULTRASOUND EVALUATION CLINICALLY INDICATED . 2. FULLNESS IN THE REGION OF THE UTERINE CERVIX MAY BE PHYSIOLOGIC CHANGES. DIRECT VISUALIZATION I NDICATED. 3. MILD CIRCUMFERENTIAL BLADDER WALL THICKENING WITH SOME MILD SURROUNDING FAT STRANDING. CORRELATE T O EXCLUDE CYSTITIS. 4. MODERATE TO SEVERE HEPATIC STEATOSIS.
[2019-10-04] MEDS ORDERED: ACET/COD 300 MG/30 MG STARTER PACK 6 TAB BTL PO STA (17:39)
[2019-10-04 17:49] VITALS: BP 136/86; RESP 18; TEMP 98.1
[2019-10-06 15:09] LABS: C. trachomatis,PCR Negative (Neg,Equiv); Chlamydia trachomatis Source Urine
[2019-10-06 15:10] LABS: N. gonorrhoeae,PCR Negative (Neg,Equiv); Neisseria Source Urine
== END 2019-10-04 17:51 | disposition home or self-care (01) ==
LOC: EC 14:00
DX: N83.201 Unspecified ovarian cyst, right side (principal); Z79.899 Other long term (current) drug therapy
CPT/HCPCS: 99284; 96374; 96361; 36415; 80053; 82150; 83690; 85025; 81001; 81025; 87808; 87491; 87591; 74177; J1885; Q9967

== ENCOUNTER → 2019-10-14 | Outpatient (CLI) | payer OTHER ==
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
== END | disposition home or self-care (01) ==
LOC: RADUSMAIN 17:12
PROVIDERS: ATTEND Obstetrics & Gynecology
DX: N88.8 Other specified noninflammatory disorders of cervix uteri (principal)
CPT/HCPCS: 76830; 76856

== ENCOUNTER 2019-11-06 18:43 | Emergency (ER) | payer OTHER ==
[2019-11-06 18:47] VITALS: TEMP 98
[2019-11-06] MEDS ORDERED: SODIUM CHLORIDE 0.9% 1,000 ML IV STA (19:14)
[2019-11-06] MEDS ORDERED: ONDANSETRON 4 MG/2 ML VIAL IVP STA (19:14)
[2019-11-06] MEDS ORDERED: KETOROLAC 30 MG/ML 1 ML VIAL IVP STA (19:14)
--- NOTE | 2019-11-06 19:17 | ED ---
Abdominal Pain HPI - General Chief Complaint: Abdominal Pain Stated Complaint: ABD PAIN Time Seen by Provider: 11/06/19 19:00 Source: patient Mode of arrival: ambulatory Limitations: no limitations - History of Present Illness Initial Comments: Patient is a 49-year-old female with history of ovarian cyst presenting to emergency Department with a chief complaint of abdominal pain. Patient states the pain started about an a few hours prior to arrival. States the pain is located in the left groin region as well as the mid suprapubic region. States she is currently going through menopause. States she recently had a ruptured cyst and was in the ED for evaluation. States this pain feels very similar. States afterward the initial ruptured cyst, she had a repeat ultrasound several days after which revealed a left-sided ovarian cyst. Denies any vaginal discharge, bleeding or swelling. Denies increased urgency frequency or dysuria. Denies nausea vomiting diarrhea. Denies hematuria, hematochezia or melena. Denies any fevers or chills. - Related Data Home Medications Medication Instructions Recorded Confirmed Dcuvztaw-Yslmpuvlv-Wa Otic 5 drops BOTH EARS TID 04/29/18 04/29/18 [Cortisporin Otic Soln] Nystatin 100,000 Unit/ml Susp 500,000 unit PO QID 04/29/18 04/29/18 [Mycostatin Oral Susp] Promethazine/Dextromethorphan 5 ml PO Q6H PRN 04/29/18 04/29/18 [Promethazine-Dm Syrup] Sertraline [Zoloft] 50 mg PO DAILY 04/29/18 04/29/18 Vienva 1 tab PO DAILY 04/29/18 04/29/18 Previous Rx's Medication Instructions Recorded Azithromycin [Zithromax Z-pack] 0 mg PO DIRECTED #1 pack 04/29/18 Fluticasone Nasal [place] [Flonase 2 spr EA NOSTRIL DAILY #1 bottle 04/29/18 Nasal [place]] predniSONE 50 mg PO DAILY #5 tab 04/29/18 Allergies Allergy/AdvReac Type Severity Reaction Status Date / Time No Known Allergies Allergy Verified 04/29/18 12:54 Review of Systems ROS Statement: Those systems with pertinent positive or pertinent negative responses have been documented in the HPI. ROS Other: All systems not noted in ROS Statement are negative. Past Medical History Past Medical History: GERD/Reflux History of Any Multi-Drug Resistant Organisms: None Reported Past Surgical History: Adenoidectomy, Tonsillectomy Additional Past Surgical History / Comment(s): LEFT KNEE Past Psychological History: No Psychological Hx Reported Smoking Status: Never smoker Past Alcohol Use History: Occasional Past Drug Use History: None Reported General Exam Limitations: no limitations General appearance: alert, in no apparent distress Head exam: Present: atraumatic, normocephalic, normal inspection Eye exam: Present: normal appearance, PERRL, EOMI Pupils: Present: normal accommodation ENT exam: Present: normal exam Neck exam: Present: normal inspection, full ROM Respiratory exam: Present: normal lung sounds bilaterally Cardiovascular Exam: Present: regular rate, normal rhythm, normal heart sounds GI/Abdominal exam: Present: soft, tenderness (Suprapubic and left groin tenderness). Absent: distended, guarding, rebound, bruit, pulsatile mass, hernia Extremities exam: Present: normal inspection, full ROM Back exam: Present: normal inspection, full ROM. Absent: CVA tenderness (R), CVA tenderness (L) Neurological exam: Present: alert, oriented X3 Psychiatric exam: Present: normal affect, normal mood Skin exam: Present: warm, dry, intact, normal color Course Vital Signs 11/06/19 11/06/19 18:44 20:28 Temperature 98.0 F 98.0 F Pulse Rate 103 H 74 Respiratory 18 18 Rate Blood Pressure 149/89 127/83 O2 Sat by Pulse 100 99 Oximetry Medical Decision Making - Medical Decision Making patient is a 49-year-old female presenting to emergency Department with a chief complaint of abdominal pain. Gradual onset of pain several hours prior to ED arrival. Patient was given fluids and Toradol in the ED. Reevaluation patient reports improvement in symptoms. CBC and UA are unremarkable. CMP shows elevated liver enzymes which is suspect is secondary to the hepatic steatosis that was noted on the most recent CT of the abdomen and pelvis.. Recent ultrasound and CT reveal an ovarian cyst. Patient did report pain feels like her previous ovarian cyst. Reevaluation patient reports improvement in symptoms. Denies any nausea vomiting diarrhea. Abdominal pain subsided. Patient declined pelvic examination. Patient has no concern for STDs. No CVA tenderness. Patient is not . Patient is scheduled to see within a week. Return parameters were thoroughly discussed the patient was understanding and agreeable. Case discussed with physician. - Lab Data Result diagrams: 11/06/19 20:18 11/06/19 20:18 Lab Results 11/06/19 11/06/19 11/06/19 Range/Units 20:18 20:18 20:18 WBC 9.9 (3.8-10.6) k/uL RBC 4.19 (3.80-5.40) m/uL Hgb 12.6 (11.4-16.0) gm/dL Hct 37.3 (34.0-46.0) % MCV 89.1 (80.0-100.0) fL MCH 30.0 (25.0-35.0) pg MCHC 33.7 (31.0-37.0) g/dL RDW 12.3 (11.5-15.5) % Plt Count 283 (150-450) k/uL Neutrophils % 65 % Lymphocytes % 26 % Monocytes % 4 % Eosinophils % 3 % Basophils % 0 % Neutrophils # 6.4 (1.3-7.7) k/uL Lymphocytes # 2.6 (1.0-4.8) k/uL Monocytes # 0.4 (0-1.0) k/uL Eosinophils # 0.2 (0-0.7) k/uL Basophils # 0.0 (0-0.2) k/uL Sodium (137-145) mmol/L Potassium (3.5-5.1) mmol/L Chloride (98-107) mmol/L Carbon Dioxide (22-30) mmol/L Anion Gap mmol/L BUN (7-17) mg/dL Creatinine (0.52-1.04) mg/dL Est GFR (CKD-EPI)AfAm (>60 ml/min/1.73 sqM) Est GFR (CKD-EPI)NonAf (>60 ml/min/1.73 sqM) Glucose (74-99) mg/dL Calcium (8.4-10.2) mg/dL Total Bilirubin (0.2-1.3) mg/dL AST (14-36) U/L ALT (4-34) U/L Alkaline Phosphatase (38-126) U/L Total Protein (6.3-8.2) g/dL Albumin (3.5-5.0) g/dL Urine Color Light Yellow Urine Appearance Clear (Clear) Urine pH 6.5 (5.0-8.0) Ur Specific [place] 1.005 (1.001-1.035) Urine Protein Negative (Negative) Urine Glucose (UA) Negative (Negative) Urine Ketones Negative (Negative) Urine Blood Small H (Negative) Urine Nitrite Negative (Negative) Urine Bilirubin Negative (Negative) Urine Urobilinogen <2.0 (<2.0) mg/dL Ur Leukocyte Esterase Trace H (Negative) Urine RBC 2 (0-5) /hpf Urine WBC 2 (0-5) /hpf Ur Squamous Epith Cells 3 (0-4) /hpf Urine HCG, Qual Not Detected (Not Detectd) 11/06/19 Range/Units 20:18 WBC (3.8-10.6) k/uL RBC (3.80-5.40) m/uL Hgb (11.4-16.0) gm/dL Hct (34.0-46.0) % MCV (80.0-100.0) fL MCH (25.0-35.0) pg MCHC (31.0-37.0) g/dL RDW (11.5-15.5) % Plt Count (150-450) k/uL Neutrophils % % Lymphocytes % % Monocytes % % Eosinophils % % Basophils % % Neutrophils # (1.3-7.7) k/uL Lymphocytes # (1.0-4.8) k/uL Monocytes # (0-1.0) k/uL Eosinophils # (0-0.7) k/uL Basophils # (0-0.2) k/uL Sodium 138 (137-145) mmol/L Potassium 4.1 (3.5-5.1) mmol/L Chloride 103 (98-107) mmol/L Carbon Dioxide 26 (22-30) mmol/L Anion Gap 9 mmol/L BUN 12 (7-17) mg/dL Creatinine 0.44 L (0.52-1.04) mg/dL Est GFR (CKD-EPI)AfAm >90 (>60 ml/min/1.73 sqM) Est GFR (CKD-EPI)NonAf >90 (>60 ml/min/1.73 sqM) Glucose 86 (74-99) mg/dL Calcium 9.6 (8.4-10.2) mg/dL Total Bilirubin 0.5 (0.2-1.3) mg/dL AST 55 H (14-36) U/L ALT 57 H (4-34) U/L Alkaline Phosphatase 105 (38-126) U/L Total Protein 8.3 H (6.3-8.2) g/dL Albumin 4.9 (3.5-5.0) g/dL Urine Color Urine Appearance (Clear) Urine pH (5.0-8.0) Ur Specific [place] (1.001-1.035) Urine Protein (Negative) Urine Glucose (UA) (Negative) Urine Ketones (Negative) Urine Blood (Negative) Urine Nitrite (Negative) Urine Bilirubin (Negative) Urine Urobilinogen (<2.0) mg/dL Ur Leukocyte Esterase (Negative) Urine RBC (0-5) /hpf Urine WBC (0-5) /hpf Ur Squamous Epith Cells (0-4) /hpf Urine HCG, Qual (Not Detectd) Disposition Clinical Impression: Abdominal pain Disposition: HOME SELF-CARE Condition: Stable Instructions (If sedation given, give patient instructions): Abdominal Pain (ED) Additional Instructions: Take Tylenol for pain control. Follow-up with your OB. Return to emergency department if symptoms worsen. Is patient prescribed a controlled substance at d/c from ED?: No Referrals: Obdulia Key MD [Primary Care Provider] - 1-2 days Time of Disposition: 21:53
[2019-11-06 20:47] LABS: Basophils % (A) 0 %; Eosinophils # (A) 0.2 k/uL (0-0.7); Eosinophils % (A) 3 %; HCT 37.3 % (34.0-46.0); HGB 12.6 gm/dL (11.4-16.0); Lymphocytes # (A) 2.6 k/uL (1.0-4.8); Lymphocytes % (A) 26 %; MCHC 33.7 g/dL (31.0-37.0); MCV 89.1 fL (80.0-100.0); Mean Platelet Volume 7.2; Monocytes # (A) 0.4 k/uL (0-1.0); Monocytes % (A) 4 %; Neutrophils # (A) 6.4 k/uL (1.3-7.7); Neutrophils % (A) 65 %; Platelet Count 283 k/uL (150-450); RBC 4.19 m/uL (3.80-5.40); RDW 12.3 % (11.5-15.5); WBC 9.9 k/uL (3.8-10.6)
[2019-11-06 20:53] LABS: ALT 57 U/L (4-34); AST 55 U/L (14-36); African American GFR (CKD) >90 (>60 ml/min/1.73 sqM); Albumin 4.9 g/dL (3.5-5.0); Alkaline Phosphatase 105 U/L (38-126); Anion Gap 9 mmol/L; Blood Urea Nitrogen 12 mg/dL (7-17); Calcium 9.6 mg/dL (8.4-10.2); Carbon Dioxide 26 mmol/L (22-30); Chloride 103 mmol/L (98-107); Glucose 86 mg/dL (74-99); Non-African American GFR(CKD) >90 (>60 ml/min/1.73 sqM); Potassium 4.1 mmol/L (3.5-5.1); Sodium 138 mmol/L (137-145); Total Bilirubin 0.5 mg/dL (0.2-1.3); Total Protein 8.3 g/dL (6.3-8.2)
[2019-11-06 21:05] LABS: Appearance,Urine Clear (Clear); Bilirubin,Urine Negative (Negative); Blood,Urine Small (Negative); Color,Urine Light Yellow; Glucose,Urine (UA) Negative (Negative); Ketones,Urine Negative (Negative); Leukocyte Esterase,Urine Trace (Negative); Nitrite,Urine Negative (Negative); PH, Urine 6.5 (5.0-8.0); Protein,Urine Negative (Negative); RBC,Urine 2 /hpf (0-5); Specific Gravity,Urine 1.005 (1.001-1.035); Squamous Epithelial Cell,Urine 3 /hpf (0-4); Urobilinogen,Urine <2.0 mg/dL (<2.0); WBC,Urine 2 /hpf (0-5)
[2019-11-06 22:15] VITALS: BP 133/81; PULSE 85; RESP 20
== END 2019-11-06 22:14 | disposition home or self-care (01) ==
LOC: EC 18:43
DX: R10.9 Unspecified abdominal pain (principal); N83.202 Unspecified ovarian cyst, left side
CPT/HCPCS: 36415; 80053; 85025; 81001; 81025; 99284; 96374; 96375; 96361; J2405; J1885

== ENCOUNTER 2020-03-14 17:50 | Emergency (ER) | payer OTHER ==
[2020-03-14 18:04] VITALS: BP 123/89; PULSE 98; RESP 22; TEMP 99.1
[2020-03-14] MEDS ORDERED: LORazepam 1 MG TAB PO STA (18:17)
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
== END 2020-03-14 18:37 | disposition home or self-care (01) ==
LOC: EC 17:50
DX: J70.5 Respiratory conditions due to smoke inhalation (principal); F41.9 Anxiety disorder, unspecified; Z79.3 Long term (current) use of hormonal contraceptives; Z79.899 Other long term (current) drug therapy; X14.0XXA Inhalation of hot air and gases, initial encounter; Y92.009 Unspecified place in unspecified non-institutional (private) residence as the place of occurrence of the external cause
CPT/HCPCS: 99283

== ENCOUNTER → 2020-10-05 | Outpatient (CLI) | payer OTHER ==
--- NOTE | 2020-10-05 11:09 | US ---
EXAMINATION TYPE: US pelvic complete DATE OF EXAM: 10/05/2020 COMPARISON: US & CT 2019 CLINICAL HISTORY: R10.2 pelvic pain, N92.6 Irregular menstruation. History of ovarian cysts, irregula r cycles x many years, 2, miscarriage 2 TECHNIQUE: . Transabdominal sonographic images of the pelvis were acquired. Date of LMP: Unknown EXAM MEASUREMENTS: Uterus: 8.8 x 4.5 x 6.0 cm Endometrial Stripe: 0.9 cm Right Ovary: 2.6 x 1.9 x 2.1 cm Left Ovary: 2.8 x 1.5 x 1.8 cm 1. Uterus: anteverted, heterogeneous with 1.4 x 1.0 x 1.2cm hypoechoic area seen posterior myometriu m, 1.4cm nabothian cyst seen 2. Endometrium: appears wnl 3. Right Ovary: wnl 4. Left Ovary: wnl 5. Bilateral Adnexa: wnl 6. Posterior cul-de-sac: wnl IMPRESSION: Findings suggest leiomyomatous change of the uterus.
== END | disposition home or self-care (01) ==
LOC: RADUSWWP 10:09
PROVIDERS: ATTEND Obstetrics & Gynecology
DX: N92.6 Irregular menstruation, unspecified (principal); R10.2 Pelvic and perineal pain
CPT/HCPCS: 76856

== ENCOUNTER → 2020-12-03 | Outpatient (CLI) | payer OTHER | END | disposition home or self-care (01) | LOC: LABWHC1 14:06 | PROVIDERS: ATTEND Family Medicine | DX: Z20.822 Contact with and (suspected) exposure to COVID-19 (principal) | CPT/HCPCS: U0003; C9803; U0005 ==

== ENCOUNTER 2020-12-17 06:54 | Day surgery (SDC) | payer OTHER ==
[2020-12-13 17:43] VITALS: BMI 24.5
--- NOTE | 2020-12-17 06:23 | P.HPOB ---
History of Present Illness H&P Date: 12/17/20 Chief Complaint: Menorrhagia with irregular cycle 50 year old presents for D&C hysteroscopy, endometrial ablation with NovaSure for very heavy and irregular periods. Review of Systems All systems: negative Constitutional: Denies chills, Denies fever Eyes: denies blurred vision, denies pain Ears, nose, mouth and throat: Denies headache, Denies sore throat Cardiovascular: Denies chest pain, Denies shortness of breath Respiratory: Denies cough Gastrointestinal: Denies abdominal pain, Denies diarrhea, Denies nausea, Denies vomiting Genitourinary: Denies dysuria, Denies hematuria Musculoskeletal: Denies myalgias Integumentary: Denies pruritus, Denies rash Neurological: Denies numbness, Denies weakness Psychiatric: Denies anxiety, Denies depression Endocrine: Denies fatigue, Denies weight change Past Medical History Past Medical History: Asthma, GERD/Reflux, Hyperlipidemia Additional Past Medical History / Comment(s): heavy frequent periods, seasonal allergies, states "loses voice" frequently, History of Any Multi-Drug Resistant Organisms: None Reported Past Surgical History: Adenoidectomy, Orthopedic Surgery, Tonsillectomy Additional Past Surgical History / Comment(s): LEFT KNEE scope, benign cyst removed from arm Past Anesthesia/Blood Transfusion Reactions: No Reported Reaction Smoking Status: Never smoker - Past Family History Father Family Medical History: Cancer Additional Family Medical History / Comment(s): colon ca Medications and Allergies Home Medications Medication Instructions Recorded Confirmed Type Sertraline [Zoloft] 50 mg PO HS 04/29/18 12/13/20 History Estrogen,Con/M-Progest Acet 1 tab PO DIRECTED 12/13/20 12/13/20 History [Prempro 0.3 mg-1.5 mg Tablet] Ibuprofen 600 mg PO Q8H PRN 12/13/20 12/13/20 History Loratadine [Claritin] 10 mg PO HS 12/13/20 12/13/20 History Melatonin 5 mg PO HS 12/13/20 12/13/20 History Omeprazole [PriLOSEC] 20 mg PO HS 12/13/20 12/13/20 History Pravastatin Sodium [Pravachol] 20 mg PO HS 12/13/20 12/13/20 History Allergies Allergy/AdvReac Type Severity Reaction Status Date / Time No Known Allergies Allergy Verified 12/13/20 17:37 Exam Osteopathic Statement: *. No significant issues noted on an osteopathic structural exam other than those noted in the History and Physical/Consult. HEart: RRR Lungs: CTAB Abdomen: soft, nontender Extremeties: neg shree's Assessment and Plan (1) Menorrhagia with irregular cycle Status: Acute Code(s): N92.1 - EXCESSIVE AND FREQUENT MENSTRUATION WITH IRREGULAR CYCLE SNOMED Code(s): 148759202 Plan: 1. D&C hysteroscopy, endometrial ablation with NovaSure.
[~2020-12-17 06:54] MED LIST: DEXAMETHASONE SOD PHOSPHATE 4 MG/ML 1 ML VIAL IV ONE; LACTATED RINGERS 1,000 ML IV SCH; LIDOCAINE 1% (10MG/ML) FOR IV START INTRADERMA PRN; MIDAZOLAM 2 MG/2 ML VIAL IV PRN; ONDANSETRON 4 MG/2 ML VIAL IVP ONE; Pre Op ABX Message 1 EACH MISC MISCELLANE ONE
[2020-12-17] MEDS ORDERED: HYDROmorphone 0.5 MG/0.5 ML SYRINGE IVP PRN (07:00)
[2020-12-17 07:17] VITALS: RESP 16
[2020-12-17 07:48] LABS: Basophils % (A) 0 %; Eosinophils # (A) 0.2 k/uL (0-0.7); Eosinophils % (A) 3 %; HCT 35.5 % (34.0-46.0); HGB 12.5 gm/dL (11.4-16.0); Lymphocytes # (A) 1.7 k/uL (1.0-4.8); Lymphocytes % (A) 21 %; MCH 31.7 pg (25.0-35.0); MCHC 35.3 g/dL (31.0-37.0); MCV 89.6 fL (80.0-100.0); Mean Platelet Volume 6.8; Monocytes # (A) 0.3 k/uL (0-1.0); Monocytes % (A) 4 %; Neutrophils # (A) 5.6 k/uL (1.3-7.7); Neutrophils % (A) 71 %; Platelet Count 260 k/uL (150-450); RBC 3.96 m/uL (3.80-5.40); RDW 11.8 % (11.5-15.5); WBC 7.8 k/uL (3.8-10.6)
[2020-12-17] MEDS ORDERED: LIDOCAINE 1% INJ 10MG/ML (20 ML MDV) ONE (08:03)
[2020-12-17] MEDS ORDERED: KETOROLAC 15 MG/ML 1 ML VIAL ONE (08:03)
[2020-12-17] MEDS ORDERED: MIDAZOLAM 2 MG/2 ML VIAL ONE (08:03)
[2020-12-17] MEDS ORDERED: fentaNYL (PF) 50 MCG/ML 2 ML AMP ONE (08:03)
[2020-12-17] MEDS ORDERED: PROPOFOL 10 MG/ML 20 ML VIAL IV ONE (08:03)
--- NOTE | 2020-12-17 08:43 | P.OP ---
Date of Procedure: 12/17/20 Preoperative Diagnosis: 1. menorrhagia Postoperative Diagnosis: menorrhagia Procedure(s) Performed: D&C hysteroscopy and endometrial ablation with NovaSure Anesthesia: JORDEN Surgeon: Rach Shah Estimated Blood Loss (ml): 3 IV fluids (ml): 400 Urine output (ml): 40 Pathology: other (endometrial currettings) Condition: stable Disposition: PACU Operative Findings: Hysteroscopy revealed a normal smooth contour of the uterus. Minimal endometrial curettings. The uterus sounded to 9.5 cm. The cavity length was 6 cm, width 3.2 cm, time of ablation 43 seconds, power 120 W. Description of Procedure: Patient is taken the operating room where general anesthesia was obtained without difficulty. She was prepped and draped in normal sterile fashion dorsal lithotomy position, legs placed in the Materialisey cane stirrups. Bladder was drained of all urine. Weighted speculum placed in the vagina and the anterior lip the cervix was grasped with serial tooth tenaculum. The uterus sounded to 10 cm and the cervix under 3.5 cm making the cavity length 6.5 cm. The cervix was dilated to #8 Hegar dilator. Hysteroscopy was then performed. Both ostia were visualized and there was a smooth contour of the uterus. Sharp curet was then gently used to obtain endometrial curettings. The NovaSure was introduced into the uterus with a cavity length of 6 cm, width 3.2 cm. after cavity assessment was passed, the time of ablation was 43 seconds at 120 W. Hysteroscopy was again performed and adequate ablation was noted. All instruments removed from the vagina. Patient tolerated the procedure well, sponge and instrument counts were correct 2 and she was taken to recovery in stable condition.
[2020-12-17 08:50] VITALS: TEMP 97.4
[2020-12-17 09:53] VITALS: PULSE 62
[2020-12-17 10:11] VITALS: BP 139/73
== END 2020-12-17 10:28 | disposition home or self-care (01) ==
LOC: OR 06:54
PROVIDERS: ATTEND Obstetrics & Gynecology
DX: N92.0 Excessive and frequent menstruation with regular cycle (principal); E78.5 Hyperlipidemia, unspecified; J45.909 Unspecified asthma, uncomplicated; K21.9 Gastro-esophageal reflux disease without esophagitis; F41.9 Anxiety disorder, unspecified; Z79.899 Other long term (current) drug therapy; Z79.890 Hormone replacement therapy
CPT/HCPCS: 81025; 86900; 86901; 88305; 85025; 86850; 58563; J2250; J1100; J2405; J2001; J3010; J1885; J2704; J1170

== ENCOUNTER → 2020-12-27 | Outpatient (CLI) | payer OTHER ==
--- NOTE | 2020-12-27 10:27 | US ---
EXAMINATION TYPE: US pelvic complete DATE OF EXAM: 12/27/2020 COMPARISON: 10/05/2020 CLINICAL HISTORY: R10.2 pelvic pain. D & C and ablation 1 week ago. Pelvic pain and spotting TECHNIQUE: Transabdominal (TA). Date of LMP: unknown EXAM MEASUREMENTS: Uterus: 9.6 x 4.1 x 6.6 cm Endometrial Stripe: 0.3 cm Right Ovary: 3.1 x 1.9 x 2.0 cm Left Ovary: 4.2 x 3.3 x 4.1cm cm 1. Uterus: Anteverted heterogeneous with hypoechoic area posterior = 1.3 x 1.1 x 1.3cm, Nabothian cyst = 1.3cm as on prior exam 2. Endometrium: echogenic ?due to post surgical changes 3. Right Ovary: wnl 4. Left Ovary: complex hypoechoic area = 3.2 x 2.9 x 3.3cm 5. Bilateral Adnexa: small amount of free fluid left adnexa 6. Posterior cul-de-sac: appears wnl IMPRESSION: 1. Leiomyomatous change of the uterus. 2. Nonspecific hypoechoic lesion left ovary could reflect a hemorrhagic cyst. Lesion of other etiolog y is not excluded. Follow-up study in 6 weeks is advised.
== END | disposition home or self-care (01) ==
LOC: RADUSWWP 09:29
PROVIDERS: ATTEND Obstetrics & Gynecology
DX: D25.9 Leiomyoma of uterus, unspecified (principal); N83.8 Other noninflammatory disorders of ovary, fallopian tube and broad ligament
CPT/HCPCS: 76856

== ENCOUNTER → 2021-01-17 | Outpatient (CLI) | payer OTHER ==
[2021-01-17 08:06] LABS: Basophils % (A) 1 %; Eosinophils # (A) 0.3 k/uL (0-0.7); Eosinophils % (A) 4 %; HCT 39.7 % (34.0-46.0); HGB 13.1 gm/dL (11.4-16.0); Lymphocytes # (A) 2.4 k/uL (1.0-4.8); Lymphocytes % (A) 35 %; MCH 30.1 pg (25.0-35.0); MCHC 32.9 g/dL (31.0-37.0); MCV 91.6 fL (80.0-100.0); Mean Platelet Volume 6.8; Monocytes # (A) 0.3 k/uL (0-1.0); Monocytes % (A) 4 %; Neutrophils # (A) 3.8 k/uL (1.3-7.7); Neutrophils % (A) 55 %; Platelet Count 289 k/uL (150-450); RBC 4.34 m/uL (3.80-5.40); RDW 11.9 % (11.5-15.5)
[2021-01-17 08:21] LABS: African American GFR (CKD) >90 (>60 ml/min/1.73 sqM); Anion Gap 10 mmol/L; Blood Urea Nitrogen 13 mg/dL (7-17); Calcium 10.1 mg/dL (8.4-10.2); Carbon Dioxide 28 mmol/L (22-30); Chloride 103 mmol/L (98-107); Glucose 92 mg/dL (74-99); Non-African American GFR(CKD) >90 (>60 ml/min/1.73 sqM); Potassium 4.9 mmol/L (3.5-5.1); Sodium 141 mmol/L (137-145)
== END | disposition home or self-care (01) ==
LOC: LABPAT 07:07
PROVIDERS: ATTEND Obstetrics & Gynecology
DX: Z01.812 Encounter for preprocedural laboratory examination (principal)
CPT/HCPCS: 36415; 80048; 85025

== ENCOUNTER 2021-01-24 05:34 | Day surgery (SDC) | payer OTHER ==
[2021-01-18 14:28] VITALS: BMI 25.4
[2021-01-24] MEDS ORDERED: LACTATED RINGERS 1,000 ML IV SCH (05:37)
[2021-01-24] MEDS ORDERED: DEXAMETHASONE SOD PHOSPHATE 4 MG/ML 1 ML VIAL IV ONE (05:37)
[2021-01-24] MEDS ORDERED: SCOPOLAMINE 1.5MG/72HR PATCH TRANSDERM ONE (05:37)
[2021-01-24] MEDS ORDERED: ONDANSETRON 4 MG/2 ML VIAL IVP ONE (05:37)
[2021-01-24] MEDS ORDERED: HYDROmorphone 0.5 MG/0.5 ML SYRINGE IVP PRN (07:00)
--- NOTE | 2021-01-24 07:01 | P.HPOB ---
History of Present Illness H&P Date: 01/24/21 Chief Complaint: Menorrhagia 50 year old presents for [facility] BSO with da janet and diagnostic cystoscopy. She has suffered from menorrhagia for a while now and D&C hysteroscopy Marco Antonio was done but unsuccessful. Review of Systems All systems: negative Constitutional: Denies chills, Denies fever Eyes: denies blurred vision, denies pain Ears, nose, mouth and throat: Denies headache, Denies sore throat Cardiovascular: Denies chest pain, Denies shortness of breath Respiratory: Denies cough Gastrointestinal: Denies abdominal pain, Denies diarrhea, Denies nausea, Denies vomiting Genitourinary: Denies dysuria, Denies hematuria Musculoskeletal: Denies myalgias Integumentary: Denies pruritus, Denies rash Neurological: Denies numbness, Denies weakness Psychiatric: Denies anxiety, Denies depression Endocrine: Denies fatigue, Denies weight change Past Medical History Past Medical History: GERD/Reflux, Hyperlipidemia, Pneumonia History of Any Multi-Drug Resistant Organisms: None Reported Past Surgical History: Orthopedic Surgery, Tonsillectomy, Uterine Ablation Additional Past Surgical History / Comment(s): D&C, cyst removed from left arm, left knee arthroscopy Past Anesthesia/Blood Transfusion Reactions: No Reported Reaction Additional Past Anesthesia/Blood Transfusion Reaction / Comment(s): pt has no family hx Smoking Status: Former smoker - Past Family History Father Family Medical History: Cancer Additional Family Medical History / Comment(s): colon Medications and Allergies Home Medications Medication Instructions Recorded Confirmed Type Sertraline [Zoloft] 50 mg PO HS 04/29/18 01/18/21 History Estrogen,Con/M-Progest Acet 1 tab PO HS 12/13/20 01/18/21 History [Prempro 0.3 mg-1.5 mg Tablet] Ibuprofen 600 mg PO Q8H PRN 12/13/20 01/18/21 History Loratadine [Claritin] 10 mg PO HS 12/13/20 01/18/21 History Melatonin 5 mg PO HS 12/13/20 01/18/21 History Omeprazole [PriLOSEC] 20 mg PO HS 12/13/20 01/18/21 History Pravastatin Sodium [Pravachol] 20 mg PO HS 12/13/20 01/18/21 History Acetaminophen [Tylenol] 325 mg PO Q4H PRN 01/18/21 01/18/21 History traMADol HCL 50 mg PO DIRECTED PRN 01/18/21 01/18/21 History Allergies Allergy/AdvReac Type Severity Reaction Status Date / Time codeine Allergy Vomiting Verified 01/24/21 06:07 Exam Osteopathic Statement: *. No significant issues noted on an osteopathic structural exam other than those noted in the History and Physical/Consult. Vital Signs Temp Pulse Resp BP Pulse Ox 01/24/21 06:12 97.5 F L 75 16 156/75 98 Intake and Output 01/23/21 01/23/21 01/24/21 14:59 22:59 06:59 Other: Weight 66.3 kg HEart: RRR Lungs: CTAB Abdomen: soft, nontender Extremeties: neg shree's Assessment and Plan (1) Menorrhagia with irregular cycle Current Visit: No Status: Acute Code(s): N92.1 - EXCESSIVE AND FREQUENT MENSTRUATION WITH IRREGULAR CYCLE SNOMED Code(s): 222887975 Plan: Total laparoscopic hysterectomy, bilateral salpingo-oopherectomy with da janet and diagnostic cystoscopy.
[2021-01-24] MEDS ORDERED: SUCCINYLCHOLINE CHLORIDE 100 MG/5 ML SYR IV ONE (07:08)
[2021-01-24] MEDS ORDERED: ePHEDrine SULFATE/0.9% NACL/PF 50 MG/5 ML SYRINGE IV ONE (07:08)
[2021-01-24] MEDS ORDERED: KETAMINE 10 MG/ML 20 ML VIAL ONE (07:08)
[2021-01-24] MEDS ORDERED: LIDOCAINE 1% INJ 10MG/ML (20 ML MDV) ONE (07:08)
[2021-01-24] MEDS ORDERED: WATER FOR INJECTION, STERILE 10 ML VIAL IV ONE (07:08)
[2021-01-24] MEDS ORDERED: MIDAZOLAM 2 MG/2 ML VIAL ONE (07:08)
[2021-01-24] MEDS ORDERED: SUGAMMADEX SODIUM 500 MG/5 ML SDV IV ONE (07:08)
[2021-01-24] MEDS ORDERED: fentaNYL (PF) 50 MCG/ML 2 ML AMP ONE (07:08)
[2021-01-24] MEDS ORDERED: ROCURONIUM 10 MG/ML (5 ML VIAL) IV ONE (07:08)
[2021-01-24] MEDS ORDERED: PROPOFOL 10 MG/ML 20 ML VIAL IV ONE (07:08)
[2021-01-24] MEDS ORDERED: BUPIVACAINE (PF) 0.25% 30 ML VIAL SQ ONE ×2 (07:50→08:27)
[2021-01-24] MEDS ORDERED: LACTATED RINGERS 1,000 ML IV ONE (08:21)
--- NOTE | 2021-01-24 08:45 | P.OP ---
Date of Procedure: 01/24/21 Preoperative Diagnosis: 1. Menorrhagia 2. pelvic pain Postoperative Diagnosis: 1. Menorrhagia 2. pelvic pain 3. endometriosis Procedure(s) Performed: Total laparoscopic hysterectomy and bilateral salpingo-oophorectomy using da Pricila, diagnostic cystoscopy Anesthesia: JORDEN Surgeon: Rach Shah [employer] Manager #1: Krzysztof Hernandez Estimated Blood Loss (ml): 25 IV fluids (ml): 800 Urine output (ml): 500 Pathology: other (Uterus cervix bilateral tubes and ovaries) Condition: stable Disposition: PACU Operative Findings: Uterus sounded to 7.5 cm, normal uterus, tubes, ovaries. Endometriosis implant seen on the peritoneum and possibly the left ovary. Description of Procedure: Patient taken the operating room where general anesthesia was obtained without difficulty. She is prepped and draped in normal sterile fashion dorsal lithotomy position, legs placed in the Bryant stirrups. Weighted speculum placed in the vagina and the anterior lip the cervix was grasped with single-tooth tenaculum. The uterus sounded to 7.5 cm and the cervix diameter was 3 cm. The appropriate manipulator tip and ring were placed on the Celina manipulator. The Celina manipulator was then placed in the uterus. Bañuelos catheter was also placed. Attention was then turned to the abdomen and gloves were changed. A 5 mm supraumbilical incision was made the scalpel and a 5 mm optical trocar was placed under direct visualization. 10 cm to the right of this and 2 cm down a 5 mm incision was made and 8 mm da Pricila port was placed under direct visualization. Same measurements on the opposite side of the patient's abdomen, the 5 mm incision was made and 8 mm da Pricila port was placed under direct visualization. In the left upper quadrant a 10 mm incision was made and a 10 mm optical trocar was placed under direct visualization. The 5 mm optical trocar was then replaced with the 8 mm da Pricila camera port. The robot was docked on patient's right side. The camera was introduced and then the monopolar curved scissor and [place] bipolar placed under direct visualization. I broke scrub and went to the physician console. The left infundibulopelvic ligament was cauterized with the [place] bipolar and cut with monopolar curved scissors. The left round ligament was cauterized with the [place] bipolar and cut with monopolar curved scissors. The posterior leaf of the broad ligament was taken down using the monopolar curved scissors. Anterior leaf of the broad ligament was then taken down using the monopolar curved scissors. The uterine artery was cauterized with the [place] bipolar and cut with monopolar curved scissors. The bladder flap was then started using the monopolar curved scissors. Attention was then turned to the right side of the patient's anatomy and the right infundibular pelvic ligament was cauterized with the [place] bipolar and cut with monopolar curved scissors. The right round ligament was cauterized with the [place] bipolar and cut with monopolar curved scissors. Posterior leaf of the broad ligament was taken down using the monopolar curved scissors and the anterior leaf was taken down using the monopolar curved scissors. The uterine artery was cauterized the [place] bipolar cut with monopolar curved scissors. The bladder flap was then finished on this side. Anterior colpotomy was made using the monopolar curved scissors. The rest of the uterus was from the vaginal cuff by following the ring around with the monopolar curved scissors through the uterosacral ligaments back to the anterior portion. Once the uterus and cervix were amputated they were pulled through the vaginal cuff. Hemostasis was assured. The instruments were changed for the Cardier forcep and the daly suture cut. The vaginal cuff was then closed using 2-O stratafix barbed suture in a running fashion. Hemostasis was again assured and the pelvis was irrigated. All instruments were removed from the abdomen and the robot was undocked. I scrubbed back in to perform a cystoscopy. There were jets from both ureteral orifices. The abdominal incisions were closed with 4-0 Vicryl in a subcuticular fashion. Patient tolerated the procedure well, sponge and instrument counts correct 2 and she was taken to recovery room in stable condition condition
[2021-01-24] MEDS ORDERED: ACETAMINOPHEN TAB 325 MG TAB PO PRN (08:47)
[2021-01-24] MEDS ORDERED: ONDANSETRON 4 MG/2 ML VIAL IVP PRN (09:37)
[2021-01-24] MEDS ORDERED: METOCLOPRAMIDE 5 MG/ML 2 ML VIAL IVP PRN (09:37)
[2021-01-24] MEDS ORDERED: SIMETHICONE 80 MG CHEWABLE PO PRN (09:37)
[2021-01-24] MEDS ORDERED: HYDROcodone/APAP 7.5-325MG 1 EACH TAB PO PRN (09:37)
[2021-01-24] MEDS ORDERED: diphenhydrAMINE 50 MG/ML 1 ML VIAL IVP PRN (09:37)
[2021-01-24] MEDS ORDERED: ZOLPIDEM 5 MG TAB PO PRN (09:37)
[2021-01-24] MEDS: SENNOSIDES-DOCUSATE SODIUM 1 EACH TAB PO SCH ×2 (09:42→23:38)
[2021-01-24] MEDS: KETOROLAC 15 MG/ML 1 ML VIAL IVP SCH ×2 (10:33→16:12)
[2021-01-24 18:02] VITALS: RESP 16
[2021-01-24] MEDS ORDERED: PANTOPRAZOLE 40 MG TABLET PO SCH (21:00)
[2021-01-24] MEDS ORDERED: SERTRALINE 50 MG TAB PO SCH (21:00)
[2021-01-24] MEDS ORDERED: NON FORMULARY DRUG (Estrogen,Con/M-Progest Acet [Prempro 0.3 Mg-1.5 Mg Tablet] 1 EACH Tabl PO SCH (21:00)
[2021-01-24] MEDS ORDERED: LORATADINE 10 MG TAB PO SCH (21:00)
[2021-01-24] MEDS ORDERED: PRAVASTATIN SODIUM 20 MG TAB PO SCH (21:00)
[2021-01-25] MEDS: KETOROLAC 15 MG/ML 1 ML VIAL IVP SCH ×2 (00:01→06:04)
[2021-01-25 06:40] LABS: Basophils % (A) 0 %; Eosinophils # (A) 0.2 k/uL (0-0.7); Eosinophils % (A) 2 %; HCT 35.1 % (34.0-46.0); HGB 12.1 gm/dL (11.4-16.0); Lymphocytes # (A) 2.5 k/uL (1.0-4.8); Lymphocytes % (A) 21 %; MCH 31.6 pg (25.0-35.0); MCHC 34.4 g/dL (31.0-37.0); MCV 91.8 fL (80.0-100.0); Mean Platelet Volume 6.8; Monocytes # (A) 0.6 k/uL (0-1.0); Monocytes % (A) 5 %; Neutrophils # (A) 8.5 k/uL (1.3-7.7); Neutrophils % (A) 71 %; Platelet Count 223 k/uL (150-450); RBC 3.83 m/uL (3.80-5.40); RDW 12.2 % (11.5-15.5); WBC 11.9 k/uL (3.8-10.6)
--- NOTE | 2021-01-25 08:01 | P.DS ---
Providers Expected date of discharge: 01/25/21 Attending physician: Rach Shah Primary care physician: Obdulia Mcmillanumar - Discharge Diagnosis(es) (1) Menorrhagia with irregular cycle Current Visit: No Status: Resolved (2) History of robot-assisted laparoscopic hysterectomy Current Visit: Yes Status: Acute Hospital Course: Patient presented for total laparoscopic hysterectomy bilateral salpingo- oophorectomy using da Pricila and diagnostics a cystoscopy. She underwent this procedure without complication. Postoperative course was uneventful. She denies nausea, vomiting, chest pain, shortness of breath or any calf pain. Her pain is well-controlled and her incisions are clean, dry, intact. She is ambulating and voiding without difficulty, passing flatus and tolerating regular diet. She'll be discharged home postoperative day #1 in stable condition to follow-up with me in 3 weeks. Plan - Discharge Summary Discharge Rx Participant: Yes New Discharge Prescriptions: New Ibuprofen [Motrin] 600 mg PO Q6HR PRN #30 tab PRN Reason: Mild Pain Or Fever >= 100.5 HYDROcodone/APAP 7.5-325MG [[place] 7.5-325] 1 each PO Q4H PRN #20 tab PRN Reason: Pain No Action Sertraline [Zoloft] 50 mg PO HS Ibuprofen 600 mg PO Q8H PRN PRN Reason: Pain Pravastatin Sodium [Pravachol] 20 mg PO HS Omeprazole [PriLOSEC] 20 mg PO HS Estrogen,Con/M-Progest Acet [Prempro 0.3 mg-1.5 mg Tablet] 1 tab PO HS Loratadine [Claritin] 10 mg PO HS Melatonin 5 mg PO HS traMADol HCL 50 mg PO DIRECTED PRN PRN Reason: Pain Acetaminophen [Tylenol] 325 mg PO Q4H PRN PRN Reason: Pain Discharge Medication List Sertraline [Zoloft] 50 mg PO HS 04/29/18 [History] Estrogen,Con/M-Progest Acet [Prempro 0.3 mg-1.5 mg Tablet] 1 tab PO HS 12/13/20 [History] Ibuprofen 600 mg PO Q8H PRN 12/13/20 [History] Loratadine [Claritin] 10 mg PO HS 12/13/20 [History] Melatonin 5 mg PO HS 12/13/20 [History] Omeprazole [PriLOSEC] 20 mg PO HS 12/13/20 [History] Pravastatin Sodium [Pravachol] 20 mg PO HS 12/13/20 [History] Acetaminophen [Tylenol] 325 mg PO Q4H PRN 01/18/21 [History] traMADol HCL 50 mg PO DIRECTED PRN 01/18/21 [History] HYDROcodone/APAP 7.5-325MG [[place] 7.5-325] 1 each PO Q4H PRN #20 tab 01/25/21 [Rx] Ibuprofen [Motrin] 600 mg PO Q6HR PRN #30 tab 01/25/21 [Rx] Follow up Appointment(s)/Referral(s): Rach Shah DO [Doctor of Osteopathic Medicine] - 3 Weeks Discharge Disposition: HOME SELF-CARE
[2021-01-25 08:03] VITALS: BP 107/63; PULSE 76; TEMP 97.9
[2021-01-25] MEDS ORDERED: ACETAMINOPHEN TAB 325 MG TAB PO PRN (08:46)
== END 2021-01-25 09:30 | disposition home or self-care (01) ==
LOC: OR 05:34 → 4FBP 08:47 → OR 01-25 09:30
PROVIDERS: ATTEND Obstetrics & Gynecology
DX: N92.0 Excessive and frequent menstruation with regular cycle (principal); N72 Inflammatory disease of cervix uteri; N80.0 Endometriosis of uterus; D25.9 Leiomyoma of uterus, unspecified; N83.8 Other noninflammatory disorders of ovary, fallopian tube and broad ligament; F41.9 Anxiety disorder, unspecified; N70.91 Salpingitis, unspecified; N83.202 Unspecified ovarian cyst, left side; K21.9 Gastro-esophageal reflux disease without esophagitis; E78.5 Hyperlipidemia, unspecified; Z98.890 Other specified postprocedural states; Z87.891 Personal history of nicotine dependence; Z79.899 Other long term (current) drug therapy; Z88.5 Allergy status to narcotic agent
CPT/HCPCS: 58571; S2900; 81025; 85025; 86850; 86900; 86901; 87635; 88307

== ENCOUNTER 2021-03-11 14:02 | Emergency (ER) | payer OTHER ==
[2021-03-11 14:07] VITALS: BP 145/86; PULSE 92; RESP 20; TEMP 98.3
--- NOTE | 2021-03-11 14:19 | ED ---
General Adult HPI - General Chief complaint: Abdominal Pain Stated complaint: ABD pain Time Seen by Provider: 03/11/21 14:09 Source: patient Mode of arrival: ambulatory Limitations: no limitations - History of Present Illness Initial comments: Dictation was produced using [employer] dictation software. please excuse any grammatical, word or spelling errors. Chief Complaint: 50-year-old female presents to the emergency department for left lower quadrant abdominal pain History of Present Illness: 10-year-old female she had a hysterectomy back in January. She just got cleared to go back to work. 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 During that event she felt like she must of strain or hurts really bad. Patient states she has severe abdominal pain to the left lower quadrant. Denies any nausea vomiting diarrhea. She has never had symptoms like this before. No constitutional symptoms. Pain is sharp and localized to left lower quadrant without any radiation. The ROS documented in this emergency department record has been reviewed and confirmed by me. Those systems with pertinent positive or negative responses have been documented in the HPI. All other systems are other negative and/or noncontributory. PHYSICAL EXAM: General Impression: Alert and oriented x3, acute distress secondary to pain HEENT: Normocephalic atraumatic, extra-ocular movements intact, pupils equal and reactive to light bilaterally, mucous membranes moist. Cardiovascular: Heart regular rate and rhythm Chest: Able to complete full sentences, no retractions, no tachypnea Abdomen: abdomen soft, superficial tenderness to palpation of left lower quadrant, non-distended, no organomegaly Musculoskeletal: Pulses present and equal in all extremities, no peripheral edema Motor: no focal deficits noted Neurological: CN II-XII grossly intact, no focal motor or sensory deficits noted Skin: Intact with no visualized rashes Psych: Normal affect and mood ED course: 50-year-old female presents to the emergency department for severe left lower abdominal pain. She has past medical history of hysterectomy. Vital signs upon arrival within acceptable limits. Patient woke up normal this morning. Her symptoms began while at work lifting CT without contrast shows no acute processes. Clinical presentation consistent with abdominal strain. She'll be discharge. - Related Data Home Medications Medication Instructions Recorded Confirmed Sertraline [Zoloft] 50 mg PO HS 04/29/18 01/18/21 Estrogen,Con/M-Progest Acet 1 tab PO HS 12/13/20 01/18/21 [Prempro 0.3 mg-1.5 mg Tablet] Ibuprofen 600 mg PO Q8H PRN 12/13/20 01/18/21 Loratadine [Claritin] 10 mg PO HS 12/13/20 01/18/21 Melatonin 5 mg PO HS 12/13/20 01/18/21 Omeprazole [PriLOSEC] 20 mg PO HS 12/13/20 01/18/21 Pravastatin Sodium [Pravachol] 20 mg PO HS 12/13/20 01/18/21 Acetaminophen [Tylenol] 325 mg PO Q4H PRN 01/18/21 01/18/21 traMADol HCL 50 mg PO DIRECTED PRN 01/18/21 01/18/21 Previous Rx's Medication Instructions Recorded HYDROcodone/APAP 7.5-325MG [[place] 1 each PO Q4H PRN #20 tab 01/25/21 7.5-325] Ibuprofen [Motrin] 600 mg PO Q6HR PRN #30 tab 01/25/21 Allergies Allergy/AdvReac Type Severity Reaction Status Date / Time codeine Allergy Vomiting Verified 03/11/21 14:07 Review of Systems ROS Statement: Those systems with pertinent positive or pertinent negative responses have been documented in the HPI. ROS Other: All systems not noted in ROS Statement are negative. Past Medical History Past Medical History: GERD/Reflux History of Any Multi-Drug Resistant Organisms: None Reported Past Surgical History: Adenoidectomy, Hysterectomy, Tonsillectomy Additional Past Surgical History / Comment(s): LEFT KNEE Past Psychological History: Anxiety Smoking Status: Former smoker Past Alcohol Use History: Occasional Past Drug Use History: None Reported General Exam Limitations: no limitations Course Vital Signs 03/11/21 14:03 Temperature 98.3 F Pulse Rate 92 Respiratory 20 Rate Blood Pressure 145/86 O2 Sat by Pulse 99 Oximetry Disposition Clinical Impression: Abdominal muscle strain Disposition: HOME SELF-CARE Condition: Good Instructions (If sedation given, give patient instructions): Core Strengthening Exercises (ED) Is patient prescribed a controlled substance at d/c from ED?: No Referrals: Obdulia Key MD [Primary Care Provider] - 1-2 days
--- NOTE | 2021-03-11 14:59 | CT ---
EXAMINATION TYPE: CT abdomen pelvis wo con DATE OF EXAM: 03/11/2021 COMPARISON: HISTORY: LLQ pain. Post Op hysterectomy -2020. CT DLP: 515.4 mGycm Examination of the solid and hollow viscera is limited given the lack of contrast. FINDINGS: LUNG BASES: No evidence for nodule. No evidence for infiltrate. LIVER/GB: Hepatic steatosis with the associated hepatomegaly. The gallbladder is unremarkable. No spa ce-occupying hepatic lesion. PANCREAS: No pancreatic mass identified. No inflammatory process seen. SPLEEN: No evidence for splenomegaly. No intrasplenic lesions seen. ADRENALS: No adrenal nodules identified. No evidence for thickening. KIDNEYS: No evidence for renal mass. No nephrolithiasis. No hydronephrosis. BOWEL: Appendix has a normal appearance. No evidence of bowel obstruction. No inflammatory process. Lymph nodes: No evidence for adenopathy greater than 1 cm. Abdominal aorta: Atheromatous changes seen. No evidence for aneurysm. Genital organs: No significant abnormality. Other: No significant abnormality. IMPRESSION: 1. No acute process identified to account for the patient's symptoms. Nonacute findings discussed abo ve.
[2021-03-11] MEDS ORDERED: LIDOCAINE 5% PATCH TOPICAL STA (15:12)
== END 2021-03-11 15:24 | disposition home or self-care (01) ==
LOC: EC 14:02
DX: S39.011A Strain of muscle, fascia and tendon of abdomen, initial encounter (principal); K21.9 Gastro-esophageal reflux disease without esophagitis; F41.9 Anxiety disorder, unspecified; Z87.891 Personal history of nicotine dependence; Z79.1 Long term (current) use of non-steroidal anti-inflammatories (NSAID); Z90.710 Acquired absence of both cervix and uterus; X50.0XXA Overexertion from strenuous movement or load, initial encounter
CPT/HCPCS: 74176; 99284

== ENCOUNTER 2021-04-06 17:23 | Emergency (ER) | payer OTHER ==
--- NOTE | 2021-04-06 18:23 | ED ---
General Adult HPI - General Chief complaint: Shortness of Breath Stated complaint: Chest Pressure Time Seen by Provider: 04/06/21 18:03 Source: patient Mode of arrival: wheelchair Limitations: no limitations - History of Present Illness Initial comments: Dictation was produced using [employer] dictation software. please excuse any grammatical, word or spelling errors. Chief Complaint: 50-year-old female sent in by primary care physician for concerns of PE History of Present Illness: Patient is a 50-year-old female she was sent by her primary care physician Dr. Peterson for concerns of PE. Patient has been having some shortness of breath for the last several days. She did have some substernal chest pain that is pleuritic in nature. Patient states the pain is like a pressure. She has been having some URI type symptoms recently with some cough and nasal congestion. She is test for: Negative. Denies any lower extremity symptoms. No history of DVT. No history of cancer. The ROS documented in this emergency department record has been reviewed and confirmed by me. Those systems with pertinent positive or negative responses have been documented in the HPI. All other systems are other negative and/or noncontributory. PHYSICAL EXAM: General Impression: Alert and oriented x3, not in acute distress HEENT: Normocephalic atraumatic, extra-ocular movements intact, pupils equal and reactive to light bilaterally, mucous membranes moist. Cardiovascular: Heart regular rate and rhythm Chest: Able to complete full sentences, no retractions, no tachypnea Abdomen: abdomen soft, non-tender, non-distended, no organomegaly Musculoskeletal: Pulses present and equal in all extremities, no peripheral edema Motor: no focal deficits noted Neurological: CN II-XII grossly intact, no focal motor or sensory deficits noted Skin: Intact with no visualized rashes Psych: Normal affect and mood ED course: 50-year-old well-appearing female sent in by primary care physician for shortness of breath. Signs upon arrival are within acceptable limits. EKGs benign. Laboratory evaluation obtained. CBC is unremarkable. Coag panel is negative per troponins negative. D-dimer 0.95. Chest x-ray is unremarkable. CT angios the chest shows no evidence of pulmonary embolism. Lung parenchyma was clear of any infiltrates. Patient reevaluated at bedside by me several medical condition. She is smiling not showing any signs of distress. Clinical presentation consistent with atypical chest pain. She has no high-risk features. Patient will be discharged. EKG interpretation: Ventricular rate 72, normal sinus rhythm, WY interval 152, QRS 80, QTc 438. No WY prolongation, no QTC prolongation, no ST or T-wave changes noted. Overall, this EKG is unremarkable - Related Data Home Medications Medication Instructions Recorded Confirmed Sertraline [Zoloft] 50 mg PO HS 04/29/18 04/06/21 Estrogen,Con/M-Progest Acet 1 tab PO HS 12/13/20 04/06/21 [Prempro 0.3 mg-1.5 mg Tablet] Loratadine [Claritin] 10 mg PO HS 12/13/20 04/06/21 Omeprazole [PriLOSEC] 20 mg PO HS 12/13/20 04/06/21 Pravastatin Sodium [Pravachol] 20 mg PO HS 12/13/20 04/06/21 Melatonin 5 mg PO HS PRN 04/06/21 04/06/21 Mv-Mn/FA/Bl Coh/Isoflav/Jujube 1 cap PO HS 04/06/21 04/06/21 [Estroven Menopause Caplet] Allergies Allergy/AdvReac Type Severity Reaction Status Date / Time codeine Allergy Vomiting Verified 04/06/21 18:56 Review of Systems ROS Statement: Those systems with pertinent positive or pertinent negative responses have been documented in the HPI. ROS Other: All systems not noted in ROS Statement are negative. Past Medical History Past Medical History: GERD/Reflux History of Any Multi-Drug Resistant Organisms: None Reported Past Surgical History: Adenoidectomy, Hysterectomy, Tonsillectomy Additional Past Surgical History / Comment(s): LEFT KNEE Past Psychological History: Anxiety Smoking Status: Former smoker Past Alcohol Use History: Occasional Past Drug Use History: None Reported General Exam Limitations: no limitations Course Vital Signs 04/06/21 04/06/21 17:36 19:05 Temperature 98.2 F Pulse Rate 74 72 Respiratory 20 18 Rate Blood Pressure 128/84 133/83 O2 Sat by Pulse 100 98 Oximetry Medical Decision Making - Lab Data Result diagrams: 04/06/21 18:35 04/06/21 18:35 Lab Results 04/06/21 04/06/21 04/06/21 Range/Units 18:35 18:35 18:35 WBC 9.9 (3.8-10.6) k/uL RBC 4.40 (3.80-5.40) m/uL Hgb 13.7 (11.4-16.0) gm/dL Hct 40.2 (34.0-46.0) % MCV 91.2 (80.0-100.0) fL MCH 31.1 (25.0-35.0) pg MCHC 34.1 (31.0-37.0) g/dL RDW 11.9 (11.5-15.5) % Plt Count 267 (150-450) k/uL MPV 7.0 Neutrophils % 65 % Lymphocytes % 27 % Monocytes % 4 % Eosinophils % 2 % Basophils % 0 % Neutrophils # 6.4 (1.3-7.7) k/uL Lymphocytes # 2.7 (1.0-4.8) k/uL Monocytes # 0.4 (0-1.0) k/uL Eosinophils # 0.2 (0-0.7) k/uL Basophils # 0.0 (0-0.2) k/uL D-Dimer 0.95 H (<0.60) mg/L FEU Sodium 137 (137-145) mmol/L Potassium 4.0 (3.5-5.1) mmol/L Chloride 104 (98-107) mmol/L Carbon Dioxide 21 L (22-30) mmol/L Anion Gap 12 mmol/L BUN 11 (7-17) mg/dL Creatinine 0.45 L (0.52-1.04) mg/dL Est GFR (CKD-EPI)AfAm >90 (>60 ml/min/1.73 sqM) Est GFR (CKD-EPI)NonAf >90 (>60 ml/min/1.73 sqM) Glucose 90 (74-99) mg/dL Calcium 9.8 (8.4-10.2) mg/dL Troponin I (0.000-0.034) ng/mL NT-Pro-B Natriuret Pep pg/mL 04/06/21 04/06/21 Range/Units 18:35 18:35 WBC (3.8-10.6) k/uL RBC (3.80-5.40) m/uL Hgb (11.4-16.0) gm/dL Hct (34.0-46.0) % MCV (80.0-100.0) fL MCH (25.0-35.0) pg MCHC (31.0-37.0) g/dL RDW (11.5-15.5) % Plt Count (150-450) k/uL MPV Neutrophils % % Lymphocytes % % Monocytes % % Eosinophils % % Basophils % % Neutrophils # (1.3-7.7) k/uL Lymphocytes # (1.0-4.8) k/uL Monocytes # (0-1.0) k/uL Eosinophils # (0-0.7) k/uL Basophils # (0-0.2) k/uL D-Dimer (<0.60) mg/L FEU Sodium (137-145) mmol/L Potassium (3.5-5.1) mmol/L Chloride (98-107) mmol/L Carbon Dioxide (22-30) mmol/L Anion Gap mmol/L BUN (7-17) mg/dL Creatinine (0.52-1.04) mg/dL Est GFR (CKD-EPI)AfAm (>60 ml/min/1.73 sqM) Est GFR (CKD-EPI)NonAf (>60 ml/min/1.73 sqM) Glucose (74-99) mg/dL Calcium (8.4-10.2) mg/dL Troponin I <0.012 (0.000-0.034) ng/mL NT-Pro-B Natriuret Pep 31 pg/mL Disposition Clinical Impression: Dyspnea Disposition: HOME SELF-CARE Condition: Good Instructions (If sedation given, give patient instructions): Dyspnea (ED) Is patient prescribed a controlled substance at d/c from ED?: No Referrals: Obdulia Key MD [Primary Care Provider] - 1-2 days
[2021-04-06 18:49] LABS: African American GFR (CKD) >90 (>60 ml/min/1.73 sqM); Anion Gap 12 mmol/L; Blood Urea Nitrogen 11 mg/dL (7-17); Calcium 9.8 mg/dL (8.4-10.2); Carbon Dioxide 21 mmol/L (22-30); Chloride 104 mmol/L (98-107); Glucose 90 mg/dL (74-99); Non-African American GFR(CKD) >90 (>60 ml/min/1.73 sqM); Sodium 137 mmol/L (137-145)
[2021-04-06 18:55] LABS: Basophils % (A) 0 %; Eosinophils # (A) 0.2 k/uL (0-0.7); Eosinophils % (A) 2 %; HCT 40.2 % (34.0-46.0); HGB 13.7 gm/dL (11.4-16.0); Lymphocytes # (A) 2.7 k/uL (1.0-4.8); Lymphocytes % (A) 27 %; MCH 31.1 pg (25.0-35.0); MCHC 34.1 g/dL (31.0-37.0); MCV 91.2 fL (80.0-100.0); Monocytes # (A) 0.4 k/uL (0-1.0); Monocytes % (A) 4 %; Neutrophils # (A) 6.4 k/uL (1.3-7.7); Neutrophils % (A) 65 %; Platelet Count 267 k/uL (150-450); RDW 11.9 % (11.5-15.5); WBC 9.9 k/uL (3.8-10.6)
--- NOTE | 2021-04-06 18:58 | XR ---
EXAMINATION TYPE: XR chest 1V portable DATE OF EXAM: 04/06/2021 COMPARISON: NONE HISTORY: Short of breath TECHNIQUE: Single view FINDINGS: Heart and mediastinum are normal. The lungs are clear. Diaphragm is normal. Bony thorax is intact. There are chest leads. IMPRESSION: Normal chest. No change.
[2021-04-06 19:05] VITALS: RESP 18
--- NOTE | 2021-04-06 19:44 | CT ---
EXAMINATION TYPE: CT angio chest DATE OF EXAM: 04/06/2021 COMPARISON: None HISTORY: chest pain, elevated d-dimer CT DLP: 319.3 mGycm Automated exposure control for dose reduction was used. CONTRAST: Performed with IV Contrast, patient injected with 83cc mL of Isovue 370. Our 3-D post processed images. The lungs are clear of consolidation. There is mild pectus excavatum chest deformity. Heart appears f airly normal. There is no pericardial effusion. There are no hilar masses. There is no mediastinal ad enopathy. Thoracic aorta is intact. There is no aneurysm or dissection. There is no evidence of filling defect in the pulmonary arteries. There is fatty replacement of the liver. The thoracic spine is intact. There is no compression fracture. There is mild thoracic levoscoliosis. IMPRESSION: No evidence of pulmonary embolism. Fatty infiltration of the liver. No acute lung disease.
[2021-04-06 20:08] VITALS: BP 128/88; PULSE 80; TEMP 98.1
== END 2021-04-06 20:06 | disposition home or self-care (01) ==
LOC: EC 17:23
DX: R06.00 Dyspnea, unspecified (principal); K21.9 Gastro-esophageal reflux disease without esophagitis; F41.9 Anxiety disorder, unspecified; Z87.891 Personal history of nicotine dependence; Z79.899 Other long term (current) drug therapy; Z88.5 Allergy status to narcotic agent
CPT/HCPCS: 36415; 71045; 71275; 80048; 83880; 84484; 85025; 85379; 93005; 99285

== ENCOUNTER → 2021-05-30 | Outpatient (CLI) | payer OTHER ==
--- NOTE | 2021-05-30 10:24 | XR ---
EXAMINATION TYPE: XR sternum DATE OF EXAM: 05/30/2021 COMPARISON: 05/30/2021 HISTORY: Chest wall pain left side TECHNIQUE: 2 views sternum FINDINGS: Sternoclavicular junction is visualized is normal. There is some pectus excavatum. No retro sternal soft tissue abnormality is evident. No acute fractures are identified. Scoliosis is through the thoracic spine. IMPRESSION: 1. Pectus excavatum. 2. No suspicious acute sternal abnormality.
--- NOTE | 2021-05-30 12:27 | XR ---
EXAMINATION TYPE: XR knee complete RT DATE OF EXAM: 05/30/2021 COMPARISON: None HISTORY: Acute right knee pain, fall TECHNIQUE: 3 view right knee FINDINGS: Joint spaces are preserved. No acute fracture or dislocation is evident. No joint effusion is evident. Follow up exams can be performed 7-10 days from acute trauma for continued pain. IMPRESSION: 1. Normal three-view right knee.
--- NOTE | 2021-05-30 12:57 | XR ---
EXAMINATION TYPE: XR ribs LT w pa chest xray DATE OF EXAM: 05/30/2021 COMPARISON: None HISTORY: Chest wall pain left side TECHNIQUE: AP chest 2 views left RIBS FINDINGS: Heart size is normal. Pulmonary vasculature is normal. No thorax is evident. No acute osseo us abnormality is evident. Scoliosis thoracic spine. No acute pulmonary process is evident. No acute rib fractures are evident. No pneumothorax is evident. No suspicious expansile or sclerotic lesions are evident. IMPRESSION: 1. Normal left ribs. 2. Scoliosis. 3. No acute pulmonary process.
== END | disposition home or self-care (01) ==
LOC: RADXRMAIN 09:41
PROVIDERS: ATTEND Family Medicine
DX: M41.9 Scoliosis, unspecified (principal); Q67.6 Pectus excavatum; W19.XXXA Unspecified fall, initial encounter
CPT/HCPCS: 71120

== ENCOUNTER → 2022-03-22 | Outpatient (CLI) | payer OTHER ==
--- NOTE | 2022-03-22 08:43 | MM ---
Reason for Exam: Clinical finding. Last mammogram was performed 3 year(s) and 11 month(s) ago. Patient History: Menarche at age 13. Patient has no children. Left ovary removed at age 50. Right ovary removed at age 50. Hysterectomy at age 50. Postmenopausal. Risk Values: Ese 5 year model risk: 1.1%. NCI Lifetime model risk: 9.9%. Prior Study Comparison: 04/30/2018 Bilateral MG screening mammo w CAD - 2, [facility]. Tissue Density: The breast tissue is heterogeneously dense. This may lower the sensitivity of mammography. Findings: Mammogram No evidence for distinct mass or distortion. No suspicious microcalcifications.. Findings: The area of palpable concern of the left breast, the axilla of the left breast and the retroareolar of the left breast were scanned. There is a hyperechoic lesion at the left 9:00 position 5 cm from the nipple corresponding to the site of clinical concern of reflect a lipoma. No additional solid or cystic lesions seen. Overall Assessment: Benign, BI-RAD 2 Assessment: MG diagnostic mammo w CAD ARI - Bilateral: Incomplete: need additional imaging evaluation, BI-RAD 0 - Left. US breast limited LT - Left: Benign, BI-RAD 2. Management: Screening Mammogram of both breasts in 1 year. Clinical Correlation A clinical breast exam by your physician is recommended on an annual basis and results should be correlated with mammographic findings. Results were given to the patient verbally at the time of exam. Electronically signed and approved by: Kevin Winters M.D. Radiologis
== END | disposition home or self-care (01) ==
LOC: RADUSWWP 06:44
PROVIDERS: ATTEND Family Medicine
DX: R92.8 Other abnormal and inconclusive findings on diagnostic imaging of breast (principal); N63.22 Unspecified lump in the left breast, upper inner quadrant; Z78.0 Asymptomatic menopausal state
CPT/HCPCS: 77066

== ENCOUNTER → 2022-05-19 | Outpatient (CLI) | payer OTHER ==
--- NOTE | 2022-05-19 07:50 | US ---
EXAMINATION TYPE: US abdomen complete DATE OF EXAM: 05/19/2022 COMPARISON: CT, US CLINICAL HISTORY: R74.8 ELEVATED LIVER ENZYMES. Elevated liver enzymes. TECHNIQUE: Multiple sonographic images of the abdomen are obtained. FINDINGS: EXAM MEASUREMENTS: Liver Length: 14.1 cm Gallbladder Wall: 0.18 cm CBD: 0.43 cm Spleen: 9.3 cm Right Kidney: 11.6 x 5.2 x 4.2 cm Left Kidney: 11.4 x 4.5 x 5.4 cm [place]VAGE WINDER NOTES: Limited due to overlying gas. Pancreas: Limited visibility. Liver: Appears coarse with increased echogenicity and attenuation. Gallbladder: No abnormalities seen. Fold seen. Evidence for sonographic Enciso's sign: No CBD: Appears wnl Spleen: Appears wnl Right Kidney: Prominent renal pelvis. Left Kidney: Hyperechoic area seen lower pole: 1.3 x 1.2 x 1.0 cm. Upper IVC: Appears wnl Abd Aorta: Appears wnl IMPRESSION: 1. There may be some minimal fatty infiltration of the liver. 2. Hyperechoic area inferior pole left kidney. Small angiomyolipoma could be considered. Follow-up ul lea in 3-6 months is recommended.
== END | disposition home or self-care (01) ==
LOC: RADUSWWP 07:03
PROVIDERS: ATTEND Family Medicine
DX: R74.8 Abnormal levels of other serum enzymes (principal)
CPT/HCPCS: 76700

== ENCOUNTER 2022-05-23 12:23 | Emergency (ER) | payer OTHER ==
[2022-05-23 12:42] VITALS: TEMP 98.4
[2022-05-23] MEDS ORDERED: ORPHENADRINE 30 MG/ML 2 ML VIAL IVP STA (13:41)
[2022-05-23] MEDS ORDERED: diphenhydrAMINE 50 MG/ML 1 ML VIAL IVP STA (13:41)
[2022-05-23] MEDS ORDERED: KETOROLAC 15 MG/ML 1 ML VIAL IVP STA (13:41)
[2022-05-23] MEDS ORDERED: METOCLOPRAMIDE 5 MG/ML 2 ML VIAL IVP STA (13:41)
[2022-05-23 14:21] LABS: Basophils # (A) 0.1 k/uL (0-0.2); Basophils % (A) 1 %; Eosinophils # (A) 0.2 k/uL (0-0.7); Eosinophils % (A) 2 %; HCT 41.6 % (34.0-46.0); HGB 13.9 gm/dL (11.4-16.0); Lymphocytes # (A) 2.7 k/uL (1.0-4.8); Lymphocytes % (A) 27 %; MCH 31.2 pg (25.0-35.0); MCHC 33.5 g/dL (31.0-37.0); MCV 93.2 fL (80.0-100.0); Mean Platelet Volume 6.9; Monocytes # (A) 0.4 k/uL (0-1.0); Monocytes % (A) 4 %; Neutrophils # (A) 6.7 k/uL (1.3-7.7); Neutrophils % (A) 66 %; Platelet Count 237 k/uL (150-450); RBC 4.46 m/uL (3.80-5.40); RDW 11.7 % (11.5-15.5); WBC 10.2 k/uL (3.8-10.6)
--- NOTE | 2022-05-23 14:21 | ED ---
General Adult HPI - General Chief complaint: Headache Stated complaint: sharp pain rt side of head Time Seen by Provider: 05/23/22 13:22 Source: patient, RN notes reviewed Mode of arrival: ambulatory Limitations: no limitations - History of Present Illness Initial comments: This a 51-year-old female presents emergency Department with chief complaint of headache. Patient states that persistent pain for 3 days but states that she develops asthmatic pain in the right temporal region. Patient states that she no visual disturbance denies any fevers chills denies any trauma. 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 Patient states she is never exhibited headache but this in the past. She does admit that she's been recently placed on Lipitor and was placed on meclizine for recent diagnosis of vertigo. Patient denies any extremity weakness no chest pain or shortness of breath. Patient denies any other associated complaints. - Related Data Home Medications Medication Instructions Recorded Confirmed Sertraline [Zoloft] 50 mg PO HS 04/29/18 04/06/21 Estrogen,Con/M-Progest Acet 1 tab PO HS 12/13/20 04/06/21 [Prempro 0.3 mg-1.5 mg Tablet] Loratadine [Claritin] 10 mg PO HS 12/13/20 04/06/21 Omeprazole [PriLOSEC] 20 mg PO HS 12/13/20 04/06/21 Pravastatin Sodium [Pravachol] 20 mg PO HS 12/13/20 04/06/21 Melatonin 5 mg PO HS PRN 04/06/21 04/06/21 Mv-Mn/FA/Bl Coh/Isoflav/Jujube 1 cap PO HS 04/06/21 04/06/21 [Estroven Menopause Caplet] Allergies Allergy/AdvReac Type Severity Reaction Status Date / Time codeine Allergy Vomiting Verified 05/23/22 12:42 Review of Systems ROS Statement: Those systems with pertinent positive or pertinent negative responses have been documented in the HPI. ROS Other: All systems not noted in ROS Statement are negative. Past Medical History Past Medical History: GERD/Reflux History of Any Multi-Drug Resistant Organisms: None Reported Past Surgical History: Adenoidectomy, Hysterectomy, Tonsillectomy Additional Past Surgical History / Comment(s): LEFT KNEE Past Psychological History: Anxiety Smoking Status: Former smoker Past Alcohol Use History: Occasional Past Drug Use History: None Reported General Exam Limitations: no limitations General appearance: alert, in no apparent distress Head exam: Present: atraumatic, normocephalic, normal inspection Eye exam: Present: normal appearance, PERRL, EOMI. Absent: scleral icterus, conjunctival injection, periorbital swelling ENT exam: Present: normal exam, normal oropharynx, mucous membranes moist Neck exam: Present: normal inspection, full ROM. Absent: tenderness, meningismus, lymphadenopathy Respiratory exam: Present: normal lung sounds bilaterally. Absent: respiratory distress, wheezes, rales, rhonchi, stridor Cardiovascular Exam: Present: regular rate, normal rhythm, normal heart sounds. Absent: systolic murmur, diastolic murmur, rubs, gallop, clicks Neurological exam: Present: alert, oriented X3, CN II-XII intact, reflexes normal, other (Finger to nose intact bilaterally without over shooting.). Absent: motor sensory deficit Skin exam: Present: warm, dry, intact, normal color. Absent: rash Course Vital Signs 05/23/22 05/23/22 12:39 14:51 Temperature 98.4 F Pulse Rate 79 72 Respiratory 20 18 Rate Blood Pressure 110/72 123/76 O2 Sat by Pulse 100 100 Oximetry Medical Decision Making - Medical Decision Making 7-year-old female presented from chief complaint of headache this is been present for 3 days he has been slightly spasmodic in nature. Patient had CT which was unremarkable. Patient was given migraine cocktail and symptoms have resolved. Patient lab work did not reveal any acute findings there is a pending sed rate no patient symptoms resolve this time of his control discharge. Return parameters discussed. - Lab Data Result diagrams: 05/23/22 14:03 05/23/22 14:03 Lab Results 05/23/22 05/23/22 Range/Units 14:03 14:03 WBC 10.2 (3.8-10.6) k/uL RBC 4.46 (3.80-5.40) m/uL Hgb 13.9 (11.4-16.0) gm/dL Hct 41.6 (34.0-46.0) % MCV 93.2 (80.0-100.0) fL MCH 31.2 (25.0-35.0) pg MCHC 33.5 (31.0-37.0) g/dL RDW 11.7 (11.5-15.5) % Plt Count 237 (150-450) k/uL MPV 6.9 Neutrophils % 66 % Lymphocytes % 27 % Monocytes % 4 % Eosinophils % 2 % Basophils % 1 % Neutrophils # 6.7 (1.3-7.7) k/uL Lymphocytes # 2.7 (1.0-4.8) k/uL Monocytes # 0.4 (0-1.0) k/uL Eosinophils # 0.2 (0-0.7) k/uL Basophils # 0.1 (0-0.2) k/uL Sodium 139 (137-145) mmol/L Potassium 4.5 (3.5-5.1) mmol/L Chloride 99 (98-107) mmol/L Carbon Dioxide 26 (22-30) mmol/L Anion Gap 14 mmol/L BUN 18 H (7-17) mg/dL Creatinine 0.50 L (0.52-1.04) mg/dL Est GFR (CKD-EPI)AfAm >90 (>60 ml/min/1.73 sqM) Est GFR (CKD-EPI)NonAf >90 (>60 ml/min/1.73 sqM) Glucose 105 H (74-99) mg/dL Calcium 9.6 (8.4-10.2) mg/dL C-Reactive Protein 0.5 (<1.0) mg/dL Disposition Clinical Impression: Migraine headache Disposition: HOME SELF-CARE Condition: Stable Instructions (If sedation given, give patient instructions): Acute Headache (ED) Additional Instructions: Please return to the Emergency Department if symptoms worsen or any other frank rns. Is patient prescribed a controlled substance at d/c from ED?: No Referrals: Obdulia Key MD [Primary Care Provider] - 1-2 days Time of Disposition: 15:09
[2022-05-23 14:36] LABS: African American GFR (CKD) >90 (>60 ml/min/1.73 sqM); Anion Gap 14 mmol/L; Blood Urea Nitrogen 18 mg/dL (7-17); C Reactive Protein 0.5 mg/dL (<1.0); Calcium 9.6 mg/dL (8.4-10.2); Carbon Dioxide 26 mmol/L (22-30); Chloride 99 mmol/L (98-107); Glucose 105 mg/dL (74-99); Non-African American GFR(CKD) >90 (>60 ml/min/1.73 sqM); Potassium 4.5 mmol/L (3.5-5.1); Sodium 139 mmol/L (137-145)
--- NOTE | 2022-05-23 14:40 | CT ---
EXAMINATION TYPE: CT brain wo con CT DLP: 1110.4 mGycm, Automated exposure control for dose reduction was used. DATE OF EXAM: 05/23/2022 2:33 PM COMPARISON: None. CLINICAL INDICATION:Female, 51 years old with history of pain, RT SIDE SHARP HEAD PAIN AND HEADACHE TECHNIQUE: Brain: Axial CT images of the brain were obtained with coronal and sagittal reformats created and rev iewed. Contrast used: None. Oral contrast used: None. FINDINGS: Brain: Extra-axial spaces: No abnormal extra-axial fluid collections. Ventricular system: Within normal limits Cerebral parenchyma: No acute intraparenchymal hemorrhage or mass effect. The roman-white junction is well differentiated. Cerebellum: Unremarkable. Mass effect: No evidence of midline shift. Intracranial vasculature: unremarkable Soft tissues: Normal. Calvarium/osseous structures: No depressed skull fracture. Paranasal sinuses and mastoid air cells: Mild scattered paranasal sinus disease. Visualized orbits: Orbital contents are intact. IMPRESSION: No acute intracranial process.
[2022-05-23 14:51] VITALS: RESP 18
[2022-05-23 15:25] VITALS: BP 119/75; PULSE 84
[2022-05-23 16:11] LABS: Erythrocyte Sedimentation Rate 16 mm/hr (0-20)
== END 2022-05-23 15:25 | disposition home or self-care (01) ==
LOC: EC 12:23
DX: G43.909 Migraine, unspecified, not intractable, without status migrainosus (principal); K21.9 Gastro-esophageal reflux disease without esophagitis; Z88.5 Allergy status to narcotic agent; Z79.899 Other long term (current) drug therapy; Z87.891 Personal history of nicotine dependence
CPT/HCPCS: 36415; 80048; 85652; 85025; 86140; 70450; 99284; 96374; 96375; J1200; J2360; J2765; J1885

== ENCOUNTER → 2022-07-13 | Outpatient (CLI) | payer BC, OTHER ==
--- NOTE | 2022-07-13 09:08 | MR ---
EXAMINATION TYPE: MR knee LT wo con DATE OF EXAM: 07/13/2022 COMPARISON: Outside left knee x-ray July 10, 2022 HISTORY: lt knee pain, hx of meniscus tear x 20 years, involuntary hyperextension. Recent locking and swelling for 2 weeks. TECHNIQUE: Multiplanar, multisequence imaging of the left knee is performed without IV contrast. FINDINGS: MEDIAL MENISCUS: Anterior and posterior horns are intact without tear. LATERAL MENISCUS: Anterior and posterior horns are intact without tear. CRUCIATE LIGAMENTS: The anterior and posterior cruciate ligaments are intact and unremarkable. COLLATERAL LIGAMENTS: The medial collateral ligament and lateral collateral ligament complex are inta ct and unremarkable. EXTENSOR MECHANISM: Visualized quadriceps and patellar tendons are intact. EFFUSION: Small size suprapatellar joint effusion. POPLITEAL CYST: Tiny popliteal/stovall cyst. TRICOMPARTMENT SPACES: Mild tricompartment joint space loss. No significant spurring. CARTILAGE: Tricompartment articular cartilage fairly well maintained. BONE MARROW SIGNAL: No focal abnormal marrow signal is appreciated. OTHER: Additional small amount of vertically oriented fluid in the posterior medial muscles proximal tibial level. IMPRESSION: No meniscal or ligamentous tear is seen.
== END | disposition home or self-care (01) ==
LOC: RADMRIMAIN 05:56
PROVIDERS: ATTEND Orthopaedic Surgery
DX: M25.562 Pain in left knee (principal)

== ENCOUNTER 2022-07-15 12:14 | Emergency (ER) | payer BC, OTHER ==
[2022-07-15 12:25] VITALS: TEMP 98.5
[2022-07-15] MEDS ORDERED: KETOROLAC 15 MG/ML 1 ML VIAL IM STA (13:01)
--- NOTE | 2022-07-15 13:33 | ED ---
Lower Extremity Injury HPI - General Chief Complaint: Extremity Injury, Lower Stated Complaint: lt leg/foot swelling Time Seen by Provider: 07/15/22 12:47 Source: patient, RN notes reviewed, old records reviewed Mode of arrival: ambulatory Limitations: no limitations - History of Present Illness Initial Comments: Patient is a 52-year-old female presenting to the emergency room with complaints of increased left lower extremity swelling, throbbing and pain. She reports that she is following with Dr. Kaur for left knee pain and has been utilizing an Damian wrap along with crutches for decreased weightbearing. She had a an MRI completed on 07/13/[address] Castillo to further evaluate her knee pain and swelling which she reports is not significantly changed since the MRI is primarily concerned regarding swelling and throbbing sensation to her left lower extremity. She denies any redness, swelling, new trauma, or wounds. She denies any other complaints or concerns at this time including any chest pain, shortness breath, abdominal pain, nausea, vomiting, weakness, fevers or chills. In addition to her left knee pain history she has a past medical history significant for GERD. - Related Data Home Medications Medication Instructions Recorded Confirmed Sertraline [Zoloft] 50 mg PO HS 04/29/18 04/06/21 Estrogen,Con/M-Progest Acet 1 tab PO HS 12/13/20 04/06/21 [Prempro 0.3 mg-1.5 mg Tablet] Loratadine [Claritin] 10 mg PO HS 12/13/20 04/06/21 Omeprazole [PriLOSEC] 20 mg PO HS 12/13/20 04/06/21 Pravastatin Sodium [Pravachol] 20 mg PO HS 12/13/20 04/06/21 Melatonin 5 mg PO HS PRN 04/06/21 04/06/21 Mv-Mn/FA/Bl Coh/Isoflav/Jujube 1 cap PO HS 04/06/21 04/06/21 [Estroven Menopause Caplet] Allergies Allergy/AdvReac Type Severity Reaction Status Date / Time codeine Allergy Vomiting Verified 07/15/22 12:25 Review of Systems ROS Statement: Those systems with pertinent positive or pertinent negative responses have been documented in the HPI. ROS Other: All systems not noted in ROS Statement are negative. Past Medical History Past Medical History: GERD/Reflux History of Any Multi-Drug Resistant Organisms: None Reported Past Surgical History: Adenoidectomy, Hysterectomy, Tonsillectomy Additional Past Surgical History / Comment(s): LEFT KNEE Past Psychological History: Anxiety Smoking Status: Former smoker Past Alcohol Use History: Occasional Past Drug Use History: None Reported General Exam Limitations: no limitations General appearance: alert, in no apparent distress Head exam: Present: atraumatic, normocephalic, normal inspection Eye exam: Present: normal appearance, PERRL, EOMI. Absent: scleral icterus, conjunctival injection, periorbital swelling ENT exam: Present: normal exam, mucous membranes moist Neck exam: Present: normal inspection, full ROM Respiratory exam: Absent: respiratory distress, accessory muscle use Cardiovascular Exam: Present: regular rate GI/Abdominal exam: Absent: distended Left Hip exam: Present: normal inspection Upper Leg exam: Present: normal inspection Knee exam: Present: tenderness, swelling, effusion (mild). Absent: full ROM (limited by pain), laceration, ecchymosis, deformity, crepitus, dislocation, erythema Lower Leg exam: Present: full ROM, tenderness, swelling Ankle exam: Present: full ROM, tenderness, swelling. Absent: abrasion, ecchymosis, deformity, crepitus, dislocation, erythema Foot/Toe exam: Present: swelling. Absent: tenderness Neurovascular tendon exam: Present: no vascular compromise Gait: observed and limited by pain Back exam: Present: normal inspection Neurological exam: Present: alert, oriented X3, CN II-XII intact Psychiatric exam: Present: normal affect, normal mood Skin exam: Present: warm, dry, intact, normal color. Absent: rash Course Vital Signs 07/15/22 07/15/22 12:22 14:01 Temperature 98.5 F 98.5 F Pulse Rate 85 72 Respiratory 20 18 Rate Blood Pressure 122/78 113/74 O2 Sat by Pulse 99 99 Oximetry Medical Decision Making - Medical Decision Making 52-year-old female presenting to the emergency room with increased left lower extremity swelling and knee pain currently following with orthopedic with recent MRI. No significant change in knee pain since MRI. MRI report reviewed which showed no tendon or ligament tears, small Kelley's cyst noted along with osteoarthritic changes and small effusion. No indication for repeat imaging of the knee in the absence of changes no changes in symptoms since MRI along with no new trauma. Will obtain ultrasound of the lower extremity to rule out DVT due to increased swelling. Will give a dose of Toradol for pain and monitor response. Ultrasound of the left lower extremity negative for DVT. No indication for further laboratory studies. Pain improved with Toradol. Will discharge home in stable condition with continued weightbearing and compression restrictions per her orthopedist and follow-up with her or speak staff scheduled. Case discussed with Dr. North. - Radiology Data Radiology results: report reviewed, image reviewed Ultrasound venous Doppler duplex left lower extremity impression by radiologist no evidence for DVT at this time. Disposition Clinical Impression: Left knee pain Disposition: HOME SELF-CARE Condition: Stable Instructions (If sedation given, give patient instructions): Knee Pain (ED) Additional Instructions: Please continue activity restrictions along with Damian wrap per your orthopedics recommendation of minimal weightbearing with crutches use. Please keep already scheduled appointment with Dr. Castillo next week. Please follow-up with your primary care provider. Continue the use of anti-inflammatories or Tylenol as needed for pain. Please return to the Emergency Department if symptoms worsen or any other concerns. Is patient prescribed a controlled substance at d/c from ED?: No Referrals: Obdulia Key MD [Primary Care Provider] - 1-2 days Time of Disposition: 14:09
[2022-07-15 14:03] VITALS: BP 113/74; PULSE 72; RESP 18
--- NOTE | 2022-07-15 14:03 | US ---
EXAMINATION TYPE: US venous doppler duplex LE LT DATE OF EXAM: 07/15/2022 1:43 PM COMPARISON: NONE CLINICAL HISTORY: pain swelling. pain SIDE PERFORMED: Left TECHNIQUE: The lower extremity deep venous system is examined utilizing real time linear array sonog caity with graded compression, doppler sonography and color-flow sonography. VESSELS IMAGED: Common Femoral Vein Deep Femoral Vein Greater Saphenous Vein * Femoral Vein Popliteal Vein Small Saphenous Vein * Proximal Calf Veins (* superficial vessels) Left Leg: Negative for DVT IMPRESSION: No evidence for DVT at this time.
== END 2022-07-15 14:33 | disposition home or self-care (01) ==
LOC: EC 12:14
DX: M25.562 Pain in left knee (principal); K21.9 Gastro-esophageal reflux disease without esophagitis; F41.9 Anxiety disorder, unspecified; Z87.891 Personal history of nicotine dependence; Z88.5 Allergy status to narcotic agent; Z79.83 Long term (current) use of bisphosphonates; Z79.899 Other long term (current) drug therapy
CPT/HCPCS: 99283; 93971; 96372; J1885

== ENCOUNTER 2023-05-10 12:11 | Emergency (ER) | payer OTHER ==
[2023-05-10] MEDS ORDERED: KETOROLAC 15 MG/ML 1 ML VIAL IM STA (12:29)
[2023-05-10] MEDS ORDERED: LIDOCAINE 5% PATCH TOPICAL ONE (12:29)
[2023-05-10] MEDS ORDERED: methocarbamoL 500 MG TAB PO ONE (12:30)
[2023-05-10] MEDS ORDERED: HYDROmorphone 0.5 MG/0.5 ML SYRINGE IM STA (12:30)
--- NOTE | 2023-05-10 12:44 | ED ---
Back Pain HPI - General Chief Complaint: Back Pain/Injury Stated Complaint: back pain Time Seen by Provider: 05/10/23 12:21 Source: patient, RN notes reviewed Limitations: no limitations - History of Present Illness Initial Comments: This is a 52-year-old female who presents to the emergency department for lower back pain. She states that she went to lift a very heavy box today, when she developed severe pain in her lower back and felt like her leg started becoming numb. She felt like something "pulled" in her back in the process. Does report a history of ongoing back pain related to scoliosis. However, states that this is worse. Denies any loss of bowel/bladder control or saddle anesthesia. Denies any fevers, chills, sore throat, cough, dyspnea, chest pain, palpitations, abdominal pain, nausea, vomiting, diarrhea, or headaches. MD Complaint: back pain - Related Data Home Medications Medication Instructions Recorded Confirmed Sertraline [Zoloft] 50 mg PO HS 04/29/18 04/06/21 Estrogen,Con/M-Progest Acet 1 tab PO HS 12/13/20 04/06/21 [Prempro 0.3 mg-1.5 mg Tablet] Loratadine [Claritin] 10 mg PO HS 12/13/20 04/06/21 Omeprazole [PriLOSEC] 20 mg PO HS 12/13/20 04/06/21 Pravastatin Sodium [Pravachol] 20 mg PO HS 12/13/20 04/06/21 Melatonin 5 mg PO HS PRN 04/06/21 04/06/21 Mv-Mn/FA/Bl Coh/Isoflav/Jujube 1 cap PO HS 04/06/21 04/06/21 [Estroven Menopause Caplet] Previous Rx's Medication Instructions Recorded Lidocaine 5% Patch [Lidoderm 5% 1 patch TOPICAL DAILY PRN #30 patch 05/10/23 Patch] methocarbamoL [Robaxin-750] 1,500 mg PO TID PRN #30 tab 05/10/23 predniSONE 50 mg PO DAILY 5 Days #5 tab 05/10/23 Allergies Allergy/AdvReac Type Severity Reaction Status Date / Time codeine Allergy Vomiting Verified 07/15/22 12:25 Review of Systems ROS Statement: Those systems with pertinent positive or pertinent negative responses have been documented in the HPI. ROS Other: All systems not noted in ROS Statement are negative. Past Medical History Past Medical History: GERD/Reflux History of Any Multi-Drug Resistant Organisms: None Reported Past Surgical History: Adenoidectomy, Hysterectomy, Tonsillectomy Additional Past Surgical History / Comment(s): LEFT KNEE Past Psychological History: Anxiety Smoking Status: Former smoker Past Alcohol Use History: Occasional Past Drug Use History: None Reported General Exam Limitations: no limitations General appearance: alert, in distress Head exam: Present: atraumatic, normocephalic, normal inspection Respiratory exam: Present: normal lung sounds bilaterally. Absent: respiratory distress, wheezes, rales, rhonchi, stridor Cardiovascular Exam: Present: regular rate, normal rhythm, normal heart sounds. Absent: systolic murmur, diastolic murmur, rubs, gallop, clicks Back exam: Present: normal inspection, tenderness (Lumbar spine) Neurological exam: Present: alert, oriented X3, CN II-XII intact Psychiatric exam: Present: normal affect, normal mood Skin exam: Present: warm, dry, intact, normal color. Absent: rash Course Vital Signs 05/10/23 05/10/23 12:15 15:27 Temperature 98.2 F 97.5 F L Pulse Rate 62 59 L Respiratory 16 18 Rate Blood Pressure 144/82 155/78 O2 Sat by Pulse 99 100 Oximetry Medical Decision Making - Medical Decision Making This is a 52-year-old female who presents to the emergency department for lower back pain. Was pt. sent in by a medical professional or institution? @ -No Did you speak to anyone other than the patient for history? @ -No Did you review nursing and triage notes? @ -Yes, and I agree, it is accurate with regards to the patient's symptoms. Were old charts reviewed? @ -No Differential Diagnosis? @ -Differential Back Pain: Strain, zoster, cauda equina syndrome, epidural abscess, vertebral osteomyelitis, discitis, fracture, subluxation, disc herniation, DJD, spinal stenosis, dissection, AAA, pancreatitis, peptic ulcer disease, pyelonephritis, kidney stone, this is not meant to be an all-inclusive list. EKG interpreted by me (3pts min.)? @ -Not obtained X-rays interpreted by me (1pt min.)? @ -X-ray of the lumbar spine obtained. My interpretation identifies no acute fractures. CT interpreted by me (1pt min.)? @ -Not obtained U/S interpreted by me (1pt. min.)? @ -Not obtained What testing was considered but not performed? (CT, X-rays, U/S, labs)? Why? @ -None What meds were considered but not given? Why? @ -None Did you discuss the management of the patient with other professionals? @ -No Did you reconcile home meds? @ -No Was smoking cessation discussed for >3mins.? @ -No Was critical care preformed (if so, how long)? @ -No Were there social determinants of health that impacted care today? How? (Homelessness, low income, unemployed, alcoholism, drug addiction, transportation, low edu. Level, literacy, decrease access to med. care, long term, rehab)? @ -No Was there de-escalation of care discussed even if they declined? (Discuss DNR or withdrawal of care, Hospice)? @ -No What co-morbidities impacted this encounter? (DM, HTN, Smoking, COPD, CAD, Cancer, CVA, Hep., AIDS, mental health diagnosis, sleep apnea, morbid obesity)? @ -Scoliosis Was patient admitted / discharged? @ -Discharged. X-ray of the lumbar spine obtained revealing no fractures. There was some truncal shift said to be due to positioning versus muscle spasm. There were also degenerative changes noted. Her symptoms were well controlled in the emergency department. Patient is not exhibiting any red flag signs or symptoms. Advised that this is most likely a muscular strain. Rx for prednisone, Robaxin, and lidocaine patches provided with dosing instructions reviewed. Advised that the Robaxin is sedating and she should avoid driving or operating machinery when taking this. She is also advised to bend with the knees to reduce the risk of this happening in the future. She will otherwise follow up with her primary care provider for reevaluation. Undiagnosed new problem with uncertain prognosis? @ -None Drug Therapy requiring intensive monitoring for toxicity (Heparin, Nitro, Insulin, Cardizem)? @ -None Were any procedures done? @ -None Diagnosis/symptom? @ -Lumbar strain Acute, or Chronic, or Acute on Chronic? @ -Acute Uncomplicated (without systemic symptoms) or Complicated (systemic symptoms)? @ -Uncomplicated Side effects of treatment? @ -None Exacerbation, Progression, or Severe Exacerbation] @ -Not applicable Poses a threat to life or bodily function? @ -No Return precautions reviewed in depth, the patient is instructed to return to the emergency department with any new, worsening, or concerning symptoms. Patient verbalized understanding. This case was discussed in detail with the attending ED physician, Dr. Gonzales. Presentation, findings, and treatment plan discussed in detail as well. - Radiology Data Radiology results: report reviewed, image reviewed Disposition Clinical Impression: Strain of lumbar region Disposition: HOME SELF-CARE Instructions (If sedation given, give patient instructions): Low Back Strain (ED) Additional Instructions: Return to the emergency department with any new, worsening, or concerning symptoms. Take the prednisone daily for 5 days. You can take the muscle relaxant up to 4 times daily, however be aware that this may make you drowsy and you should avoid driving or operating machinery when taking this. The lidocaine patches can be applied daily as well. You can also try alternating with ice and heat. Avoid lifting or bending for the meantime. Follow up with your primary care provider in 1-2 days. Prescriptions: Lidocaine 5% Patch [Lidoderm 5% Patch] 1 patch TOPICAL DAILY PRN #30 patch PRN Reason: Pain predniSONE 50 mg PO DAILY 5 Days #5 tab methocarbamoL [Robaxin-750] 1,500 mg PO TID PRN #30 tab PRN Reason: Pain Is patient prescribed a controlled substance at d/c from ED?: No Referrals: Jena Alcaraz [Primary Care Provider] - 1-2 days
--- NOTE | 2023-05-10 14:30 | XR ---
EXAMINATION TYPE: XR lumbar spine 2 or 3V DATE OF EXAM: 05/10/2023 Comparison: None Clinical History: 52-year-old female Lower back pain Findings: Rightward truncal shift. Facet arthropathy lower lumbar spine. 5 lumbar type vertebral bodies. Mild d egenerative disc disease L5-S1 and L1-L2. Vertebral body heights are preserved. Impression: Rightward truncal shift may be positional or due to muscle spasm. There is mild degenerative disc dis ease at L1-L2 and L5-S1. Facet arthropathy lower lumbar spine. No vertebral compression collapse.
[2023-05-10] MEDS ORDERED: DEXAMETHASONE SOD PHOSPHATE 10 MG/ML 1 ML VIAL IM STA (14:38)
[2023-05-10] MEDS ORDERED: traMADol 50 MG STARTER PACK 3 TAB BTL PO STA (14:40)
[2023-05-10] MEDS ORDERED: ONDANSETRON 4 MG ODT STARTER PACK 2 TAB BTL PO STA (15:24)
[2023-05-10] MEDS ORDERED: ONDANSETRON ODT 4 MG TAB PO STA (15:24)
[2023-05-10 15:28] VITALS: BP 155/78; PULSE 59; RESP 18; TEMP 97.5
== END 2023-05-10 15:39 | disposition home or self-care (01) ==
LOC: EC 12:11
DX: S39.012A Strain of muscle, fascia and tendon of lower back, initial encounter (principal); M47.816 Spondylosis without myelopathy or radiculopathy, lumbar region; M51.36 Other intervertebral disc degeneration, lumbar region; K21.9 Gastro-esophageal reflux disease without esophagitis; F41.9 Anxiety disorder, unspecified; Z87.891 Personal history of nicotine dependence; Z79.899 Other long term (current) drug therapy; Z88.5 Allergy status to narcotic agent; X50.0XXA Overexertion from strenuous movement or load, initial encounter
CPT/HCPCS: 72100; 99283; 96372 ×3; J1100; J1885; S0119; J1170

== ENCOUNTER 2023-09-10 12:55 | Emergency (ER) | payer OTHER ==
--- NOTE | 2023-09-10 13:01 | ED ---
General Adult HPI - General Source: patient, RN notes reviewed Mode of arrival: ambulatory Limitations: no limitations <Shahla Gutierrez - Last Filed: 09/10/23 12:56> - General Source: patient, RN notes reviewed, old records reviewed <Jose Rafael White - Last Filed: 09/10/23 14:28> - General Chief complaint: Back Pain/Injury Stated complaint: back pain Time Seen by Provider: 09/10/23 13:00 - History of Present Illness Initial comments: This is a 53-year-old female who presents to the emergency department for lower back pain. States that this started in May after she injured it, and it has just not gotten any better. Denies any loss of bowel/bladder control or saddle anesthesia. (Shahla Gutierrez) Patient is a 53-year-old female who was originally evaluated as a quick note. Presents emergency Department complaining of chronic back pain. Worse today. Works at the [employer]. Presents for further evaluation at this time. Denies any saddle anesthesia, lower extremity paralysis, urinary or bowel incontinence. No other symptoms. Originally seen is a quick note. I evaluated the patient in the waiting room. (Jose Rafael White) - Related Data Home Medications Medication Instructions Recorded Confirmed Sertraline [Zoloft] 50 mg PO HS 04/29/18 04/06/21 Estrogen,Con/M-Progest Acet 1 tab PO HS 12/13/20 04/06/21 [Prempro 0.3 mg-1.5 mg Tablet] Loratadine [Claritin] 10 mg PO HS 12/13/20 04/06/21 Omeprazole [PriLOSEC] 20 mg PO HS 12/13/20 04/06/21 Pravastatin Sodium [Pravachol] 20 mg PO HS 12/13/20 04/06/21 Melatonin 5 mg PO HS PRN 04/06/21 04/06/21 Mv-Mn/FA/Bl Coh/Isoflav/Jujube 1 cap PO HS 04/06/21 04/06/21 [Estroven Menopause Caplet] Previous Rx's Medication Instructions Recorded Lidocaine 5% Patch [Lidoderm 5% 1 patch TOPICAL DAILY PRN #30 patch 05/10/23 Patch] methocarbamoL [Robaxin-750] 1,500 mg PO TID PRN #30 tab 05/10/23 predniSONE 50 mg PO DAILY 5 Days #5 tab 05/10/23 Allergies Allergy/AdvReac Type Severity Reaction Status Date / Time codeine Allergy Vomiting Verified 09/10/23 13:21 Review of Systems ROS Other: All systems not noted in ROS Statement are negative. <Shahla Gutierrez - Last Filed: 09/10/23 12:56> ROS Other: All systems not noted in ROS Statement are negative. <Jose Rafael White - Last Filed: 09/10/23 14:28> ROS Statement: Those systems with pertinent positive or pertinent negative responses have been documented in the HPI. Review of Systems: CONST: Denies fever EYES: Denies blurry vision ENT: Denies nasal congestion C/V: Denies Chest pain RESP: Denies shortness of breath GI: Denies abdominal pain : Denies dysuria SKIN: Denies rash. MSK: Endorses back pain NEURO: Denies headache (Jose Rafael White) Past Medical History Past Medical History: GERD/Reflux History of Any Multi-Drug Resistant Organisms: None Reported Past Surgical History: Adenoidectomy, Hysterectomy, Tonsillectomy Additional Past Surgical History / Comment(s): LEFT KNEE Past Psychological History: Anxiety Smoking Status: Former smoker Past Alcohol Use History: Occasional Past Drug Use History: None Reported <Shahla Gutierrez - Last Filed: 09/10/23 12:56> General Exam <Shahla Gutierrez - Last Filed: 09/10/23 12:56> <Jose Rafael White - Last Filed: 09/10/23 14:28> - General Exam Comments Initial Comments: Visual Physical Exam Vital signs reviewed General: Well-appearing, nontoxic, no acute distress. Head: Normocephalic, atraumatic Eyes: PERRLA, EOMI ENT: Airway patent Chest: Nonlabored breathing Skin: No visual rash, normal skin tone Neuro: Alert and oriented 3 Musculoskeletal: No gross abnormalities (Shahla Gutierrez) General: Appears in mild distress. HEAD: Normal with no signs of head trauma. EYES: EOMI ENT: Hearing grossly intact, normal oropharynx. RESPIRATORY: No respiratory distress C/V: Regular rate and rhythm. peripheral pulses 2+ and intact throughout ABD: Abd is soft, nontender, nondistended EXT: Normal range of motion, no obvious deformity. Minimal midline lumbar spine tenderness palpation. SKIN: No rashes or lesions observed on exposed skin. NEURO: Alert and oriented x 4. No focal sensory or strength deficits. (Jose Rafael White) Course Vital Signs 09/10/23 09/10/23 13:19 14:21 Temperature 98.2 F 98 F Pulse Rate 69 54 L Respiratory 16 18 Rate Blood Pressure 121/76 112/74 O2 Sat by Pulse 98 99 Oximetry Medical Decision Making <Shahla Gutierrez - Last Filed: 09/10/23 12:56> <Jose Rafael White - Last Filed: 09/10/23 14:28> - Medical Decision Making I performed the QuickNote portion of this chart. Signed Shahla Gutierrez PA-C. (Shahla Gutierrez) Was pt. sent in by a medical professional or institution ([facility], [facility] [employer] [facility], urgent care, hospital, or [facility]...) When possible be specific @ -No Did you speak to anyone other than the patient for history (EMS, parent, family, police, friend...)? What history was obtained from this source @ -No Did you review nursing and triage notes (agree or disagree)? Why? @ -I reviewed and agree with nursing and triage notes Were old charts reviewed (outside hosp., previous admission, EMS record, old EKG, old radiological studies, urgent care reports/EKG's, [facility] records)? Report findings @ -Old charts reviewed Differential Diagnosis (chest pain, altered mental status, abdominal pain women, abdominal pain men, vaginal bleeding, weakness, fever, dyspnea, syncope, headache, dizziness, GI bleed, back pain, seizure, CVA, palpatations, mental health, musculoskeletal)? @ -Differential Back Pain: Strain, zoster, cauda equina syndrome, epidural abscess, vertebral osteomyelitis, discitis, fracture, subluxation, disc herniation, DJD, spinal stenosis, dissection, AAA, pancreatitis, peptic ulcer disease, pyelonephritis, kidney stone, this is not meant to be an all-inclusive list. EKG interpreted by me (3pts min.). @ -None done X-rays interpreted by me (1pt min.). @ -Lumbar spine x-ray reveals scoliosis of the lumbar spine and degenerative disc disease. CT interpreted by me (1pt min.). @ -None done U/S interpreted by me (1pt. min.). @ -None done What testing was considered but not performed or refused? (CT, X-rays, U/S, labs)? Why? @ -None What meds were considered but not given or refused? Why? @ -None Did you discuss the management of the patient with other professionals (professionals i.e. DrBreana, PA, [employer] TE[employer], lab, RT, psych nurse, dialysis social worker, impregnation operator, teacher, parking enforcement officer, correctional casework specialist)? Give summary @ -No Was smoking cessation discussed for >3mins.? @ -No Was critical care preformed (if so, how long)? @ -No Were there social determinants of health that impacted care today? How? (Homelessness, low income, unemployed, alcoholism, drug addiction, transportation, low edu. Level, literacy, decrease access to med. care, group home, rehab)? @ -No Was there de-escalation of care discussed even if they declined (Discuss DNR or withdrawal of care, Hospice)? DNR status @ -No What co-morbidities impacted this encounter? (DM, HTN, Smoking, COPD, CAD, Cancer, CVA, ARF, Chemo, Hep., AIDS, mental health diagnosis, sleep apnea, morbid obesity)? @ -None Was patient admitted / discharged? Hospital course, mention meds given and route, prescriptions, significant lab abnormalities, going to OR and other pertinent info. @ -I evaluated the patient after imaging. Has acute and chronic pain. No acute injuries and no acute findings on x-ray. Discussed with her she needs follow-up with replenishment specialist and she will be provided with a contact for one. She'll receive Tylenol 3. No red flag symptoms to suggest cauda equina syndrome at this time. She was in agreement this plan. Vital signs within acceptable limits. I instructed the patient to follow up with their PCP in the next 1-3 days. I explained that the patient should return to the emergency department if they experience any worsening symptoms. Strict return precautions were discussed with the patient. The patient expressed understanding of these instructions. I answered all questions that the patient had. The patient was discharged home in good condition with their prescriptions and follow up information. Undiagnosed new problem with uncertain prognosis? @ -No Drug Therapy requiring intensive monitoring for toxicity (Heparin, Nitro, Insulin, Cardizem)? @ -No Were any procedures done? @ -No Diagnosis/symptom? @ -Lumbar to sciatica on the right Acute, or Chronic, or Acute on Chronic? @ -Acute on Chronic Uncomplicated (without systemic symptoms) or Complicated (systemic symptoms)? @ -Uncomplicated Side effects of treatment? @ -No Exacerbation, Progression, or Severe Exacerbation? @ -No Poses a threat to life or bodily function? How? (Chest pain, USA, [place], pneumonia, PE, COPD, DKA, ARF, appy, cholecystitis, CVA, Diverticulitis, Homicidal, Suicidal, threat to staff... and all critical care pts) @ -No (Jose Rafael White) Disposition <Shahla Gutierrez - Last Filed: 09/10/23 12:56> Is patient prescribed a controlled substance at d/c from ED?: No Time of Disposition: 14:00 <Jose Rafael White - Last Filed: 09/10/23 14:28> Clinical Impression: Lumbago with sciatica, right side Disposition: HOME SELF-CARE Condition: Good Instructions (If sedation given, give patient instructions): Acute Low Back Pain (ED) Referrals: Jena Alcaraz [Primary Care Provider] - 1-2 days Surjit Jean DO [Doctor of Osteopathic Medicine] - 1-2 days
--- NOTE | 2023-09-10 13:37 | XR ---
EXAMINATION TYPE: XR lumbar spine 2 or 3V DATE OF EXAM: 09/10/2023 COMPARISON: 05/10/2023 HISTORY: Low back pain TECHNIQUE: 3 view lumbar spine FINDINGS: There is a scoliosis present with convexity to the left centered at L4-5. There are 5 lumba r-type vertebral bodies. The pedicles are intact. L5-S1 disc height is narrowed. Remaining disc heigh ts are preserved. Vertebral body heights are preserved. Findings appear stable from comparison. IMPRESSION: 1. Scoliosis lower lumbar spine with L5-S1 degenerative disc change.
[2023-09-10] MEDS ORDERED: ACET/COD 300 MG/30 MG STARTER PACK 6 TAB BTL PO STA (14:04)
[2023-09-10 14:23] VITALS: BP 112/74; PULSE 54; RESP 18; TEMP 98
== END 2023-09-10 14:28 | disposition home or self-care (01) ==
LOC: EC 12:55
DX: M54.41 Lumbago with sciatica, right side (principal); K21.9 Gastro-esophageal reflux disease without esophagitis; F41.9 Anxiety disorder, unspecified; Z79.899 Other long term (current) drug therapy; Z87.891 Personal history of nicotine dependence; Z88.5 Allergy status to narcotic agent
CPT/HCPCS: 72100; 99284

== ENCOUNTER 2024-07-26 14:20 | Emergency (ER) | payer OTHER ==
[2024-07-26 14:27] VITALS: TEMP 97.3
[2024-07-26] MEDS: SODIUM CHLORIDE 0.9% 1,000 ML IV ONE (15:03)
[2024-07-26 15:18] LABS: Basophils % (A) 0 %; Eosinophils % (A) 0 %; HCT 39.1 % (34.0-46.0); HGB 13.4 gm/dL (11.4-16.0); Lymphocytes # (A) 0.9 k/uL (1.0-4.8); Lymphocytes % (A) 7 %; MCH 30.6 pg (25.0-35.0); MCHC 34.2 g/dL (31.0-37.0); MCV 89.6 fL (80.0-100.0); Mean Platelet Volume 7.6; Monocytes # (A) 0.2 k/uL (0-1.0); Monocytes % (A) 2 %; Neutrophils # (A) 11.9 k/uL (1.3-7.7); Neutrophils % (A) 91 %; Platelet Count 256 k/uL (150-450); RBC 4.36 m/uL (3.80-5.40); RDW 11.9 % (11.5-15.5); WBC 13.1 k/uL (3.8-10.6)
--- NOTE | 2024-07-26 15:33 | XR ---
EXAMINATION TYPE: XR chest 2V DATE OF EXAM: 07/26/2024 3:29 PM COMPARISON: Previous chest radiograph 04/06/2021. CLINICAL INDICATION: Female, 54 years old with history of sob; [facility] TECHNIQUE: XR chest 2V Frontal and lateral views of the chest. FINDINGS: Cardiac silhouette within normal limits for size. No acute focal consolidation. No pleural effusion. No pneumothorax. No acute osseous abnormality. IMPRESSION: No acute cardiopulmonary disease/process. [facility], , 07/26/2024 3:31 PM
[2024-07-26 15:42] LABS: ALT 27 U/L (4-34); AST 26 U/L (14-36); African American GFR (CKD) >90 (>60 ml/min/1.73 sqM); Albumin 5.2 g/dL (3.5-5.0); Alkaline Phosphatase 113 U/L (38-126); Anion Gap 11 mmol/L; Blood Urea Nitrogen 11 mg/dL (7-17); Carbon Dioxide 24 mmol/L (22-30); Chloride 105 mmol/L (98-107); Glucose 156 mg/dL (74-99); Non-African American GFR(CKD) >90 (>60 ml/min/1.73 sqM); Potassium 3.9 mmol/L (3.5-5.1); Sodium 140 mmol/L (137-145); Total Bilirubin 1.1 mg/dL (0.2-1.3); Total Protein 8.2 g/dL (6.3-8.2)
--- NOTE | 2024-07-26 16:06 | ED ---
General Adult HPI - General Chief complaint: Upper Respiratory Infection Stated complaint: ALICIA Time Seen by Provider: 07/26/24 14:33 Source: patient, RN notes reviewed Mode of arrival: ambulatory Limitations: no limitations - History of Present Illness Initial comments: 54-year-old female presents emergency department chief complaint of sore throat, laryngitis type symptoms and shortness of breath over the last 2 weeks. Patient has been on 2 steroid packs from PCP. Patient states she has had laryngitis type issues in the past in which she has been seen by multiple ENTs in the past. Patient states she still has not felt well. Patient denies any chest pain denies any nausea from diarrhea constipation. Patient states she was prior to swab for COVID influenza. - Related Data Home Medications Medication Instructions Recorded Confirmed Sertraline [Zoloft] 50 mg PO HS 04/29/18 04/06/21 Estrogen,Con/M-Progest Acet 1 tab PO HS 12/13/20 04/06/21 [Prempro 0.3 mg-1.5 mg Tablet] Loratadine [Claritin] 10 mg PO HS 12/13/20 04/06/21 Omeprazole [PriLOSEC] 20 mg PO HS 12/13/20 04/06/21 Pravastatin Sodium [Pravachol] 20 mg PO HS 12/13/20 04/06/21 Melatonin 5 mg PO HS PRN 04/06/21 04/06/21 Mv-Mn/FA/Bl Coh/Isoflav/Jujube 1 cap PO HS 04/06/21 04/06/21 [Estroven Menopause Caplet] Previous Rx's Medication Instructions Recorded Lidocaine 5% Patch [Lidoderm 5% 1 patch TOPICAL DAILY PRN #30 patch 05/10/23 Patch] methocarbamoL [Robaxin-750] 1,500 mg PO TID PRN #30 tab 05/10/23 predniSONE 50 mg PO DAILY 5 Days #5 tab 05/10/23 Amoxic-Pot Clav 875-125Mg 1 tab PO Q12HR #20 tab 07/26/24 [Augmentin 875-125] Allergies Allergy/AdvReac Type Severity Reaction Status Date / Time codeine Allergy Vomiting Verified 07/26/24 14:23 Review of Systems ROS Statement: Those systems with pertinent positive or pertinent negative responses have been documented in the HPI. ROS Other: All systems not noted in ROS Statement are negative. Past Medical History Past Medical History: GERD/Reflux History of Any Multi-Drug Resistant Organisms: None Reported Past Surgical History: Adenoidectomy, Hysterectomy, Tonsillectomy Additional Past Surgical History / Comment(s): LEFT KNEE Past Psychological History: Anxiety Smoking Status: Former smoker Past Alcohol Use History: Occasional Past Drug Use History: None Reported General Exam Limitations: no limitations General appearance: alert, in no apparent distress Head exam: Present: atraumatic, normocephalic, normal inspection Eye exam: Present: normal appearance, PERRL, EOMI. Absent: scleral icterus, conjunctival injection, periorbital swelling ENT exam: Present: normal exam, normal oropharynx, mucous membranes moist Neck exam: Present: normal inspection, full ROM. Absent: tenderness, meningismus, lymphadenopathy Respiratory exam: Present: normal lung sounds bilaterally. Absent: respiratory distress, wheezes, rales, rhonchi, stridor Cardiovascular Exam: Present: regular rate, normal rhythm, normal heart sounds. Absent: systolic murmur, diastolic murmur, rubs, gallop, clicks GI/Abdominal exam: Present: soft, normal bowel sounds. Absent: distended, tenderness, guarding, rebound, rigid Course Vital Signs 07/26/24 14:23 Temperature 97.3 F L Pulse Rate 91 Respiratory 18 Rate Blood Pressure 125/79 O2 Sat by Pulse 100 Oximetry Medical Decision Making - Medical Decision Making Was pt. sent in by a medical professional or institution ([facility], METHODOLOGIST, urgent care, hospital, or intermediate...) When possible be specific @ -No Did you speak to anyone other than the patient for history (EMS, parent, family, police, friend...)? What history was obtained from this source @ -No Did you review nursing and triage notes (agree or disagree)? Why? @ -I reviewed and agree with nursing and triage notes Were old charts reviewed (outside hosp., previous admission, EMS record, old EKG, old radiological studies, urgent care reports/EKG's, intermediate records)? Report findings @ -No old charts were reviewed Differential Diagnosis (chest pain, altered mental status, abdominal pain women, abdominal pain men, vaginal bleeding, weakness, fever, dyspnea, syncope, headache, dizziness, GI bleed, back pain, seizure, CVA, palpatations, mental health, musculoskeletal)? @ -COVID 19, RSV, influenza, pneumonia, acute bronchitis, URI, this list is not all inclusive EKG interpreted by me (3pts min.). @ -None X-rays interpreted by me (1pt min.). @ -Chest x-ray shows no acute cardiopulmonary process CT interpreted by me (1pt min.). @ -None done U/S interpreted by me (1pt. min.). @ -None done What testing was considered but not performed or refused? (CT, X-rays, U/S, labs)? Why? @ -None What meds were considered but not given or refused? Why? @ -None Did you discuss the management of the patient with other professionals (professionals i.e. , PA, METHODOLOGIST, lab, RT, psych nurse, manager social responsibility, heat treating furnace tender, teacher, weapons officer, field case manager)? Give summary @ -No Was smoking cessation discussed for >3mins.? @ -No Was critical care preformed (if so, how long)? @ -No Were there social determinants of health that impacted care today? How? (Homelessness, low income, unemployed, alcoholism, drug addiction, transportation, low edu. Level, literacy, decrease access to med. care, care home, rehab)? @ -No Was there de-escalation of care discussed even if they declined (Discuss DNR or withdrawal of care, Hospice)? DNR status @ -No What co-morbidities impacted this encounter? (DM, HTN, Smoking, COPD, CAD, Cancer, CVA, ARF, Chemo, Hep., AIDS, mental health diagnosis, sleep apnea, morbid obesity)? @ -None Was patient admitted / discharged? Hospital course, mention meds given and route, prescriptions, significant lab abnormalities, going to OR and other pertinent info. @ -Discharge patient presented for ongoing URI symptoms laryngitis type symptoms. Patient workup is negative this time. Patient follow-up with PCP and ENT. Undiagnosed new problem with uncertain prognosis? @ -No Drug Therapy requiring intensive monitoring for toxicity (Heparin, Nitro, Insulin, Cardizem)? @ -No Were any procedures done? @ -No Diagnosis/symptom? @ -Laryngitis, tracheobronchitis Acute, or Chronic, or Acute on Chronic? @ -Acute Uncomplicated (without systemic symptoms) or Complicated (systemic symptoms)? @ -Uncomplicated Side effects of treatment? @ -No Exacerbation, Progression, or Severe Exacerbation? @ -No Poses a threat to life or bodily function? How? (Chest pain, [place], [place], pneumonia, PE, COPD, DKA, ARF, appy, cholecystitis, CVA, Diverticulitis, Homicidal, Suicidal, threat to staff... and all critical care pts) @ -No - Lab Data Result diagrams: 07/26/24 14:43 07/26/24 14:43 Lab Results 07/26/24 07/26/24 07/26/24 Range/Units 14:43 14:43 14:43 WBC 13.1 H (3.8-10.6) k/uL RBC 4.36 (3.80-5.40) m/uL Hgb 13.4 (11.4-16.0) gm/dL Hct 39.1 (34.0-46.0) % MCV 89.6 (80.0-100.0) fL MCH 30.6 (25.0-35.0) pg MCHC 34.2 (31.0-37.0) g/dL RDW 11.9 (11.5-15.5) % Plt Count 256 (150-450) k/uL MPV 7.6 Neutrophils % 91 % Lymphocytes % 7 % Monocytes % 2 % Eosinophils % 0 % Basophils % 0 % Neutrophils # 11.9 H (1.3-7.7) k/uL Lymphocytes # 0.9 L (1.0-4.8) k/uL Monocytes # 0.2 (0-1.0) k/uL Eosinophils # 0.0 (0-0.7) k/uL Basophils # 0.0 (0-0.2) k/uL D-Dimer 0.31 (<0.60) mg/L FEU Sodium 140 (137-145) mmol/L Potassium 3.9 (3.5-5.1) mmol/L Chloride 105 (98-107) mmol/L Carbon Dioxide 24 (22-30) mmol/L Anion Gap 11 mmol/L BUN 11 (7-17) mg/dL Creatinine 0.51 L (0.52-1.04) mg/dL Est GFR (CKD-EPI)AfAm >90 (>60 ml/min/1.73 sqM) Est GFR (CKD-EPI)NonAf >90 (>60 ml/min/1.73 sqM) Glucose 156 H (74-99) mg/dL Calcium 10.0 (8.4-10.2) mg/dL Total Bilirubin 1.1 (0.2-1.3) mg/dL AST 26 (14-36) U/L ALT 27 (4-34) U/L Alkaline Phosphatase 113 (38-126) U/L Total Protein 8.2 (6.3-8.2) g/dL Albumin 5.2 H (3.5-5.0) g/dL Influenza Type A (PCR) (Not Detectd) Influenza Type B (PCR) (Not Detectd) RSV (PCR) (Not Detectd) SARS-CoV-2 (PCR) (Not Detectd) 07/26/24 Range/Units 14:43 WBC (3.8-10.6) k/uL RBC (3.80-5.40) m/uL Hgb (11.4-16.0) gm/dL Hct (34.0-46.0) % MCV (80.0-100.0) fL MCH (25.0-35.0) pg MCHC (31.0-37.0) g/dL RDW (11.5-15.5) % Plt Count (150-450) k/uL MPV Neutrophils % % Lymphocytes % % Monocytes % % Eosinophils % % Basophils % % Neutrophils # (1.3-7.7) k/uL Lymphocytes # (1.0-4.8) k/uL Monocytes # (0-1.0) k/uL Eosinophils # (0-0.7) k/uL Basophils # (0-0.2) k/uL D-Dimer (<0.60) mg/L FEU Sodium (137-145) mmol/L Potassium (3.5-5.1) mmol/L Chloride (98-107) mmol/L Carbon Dioxide (22-30) mmol/L Anion Gap mmol/L BUN (7-17) mg/dL Creatinine (0.52-1.04) mg/dL Est GFR (CKD-EPI)AfAm (>60 ml/min/1.73 sqM) Est GFR (CKD-EPI)NonAf (>60 ml/min/1.73 sqM) Glucose (74-99) mg/dL Calcium (8.4-10.2) mg/dL Total Bilirubin (0.2-1.3) mg/dL AST (14-36) U/L ALT (4-34) U/L Alkaline Phosphatase (38-126) U/L Total Protein (6.3-8.2) g/dL Albumin (3.5-5.0) g/dL Influenza Type A (PCR) Not Detected (Not Detectd) Influenza Type B (PCR) Not Detected (Not Detectd) RSV (PCR) Not Detected (Not Detectd) SARS-CoV-2 (PCR) Not Detected (Not Detectd) Disposition Clinical Impression: Tracheobronchitis, Laryngitis Disposition: HOME SELF-CARE Condition: Stable Instructions (If sedation given, give patient instructions): Upper Respiratory Infection (ED) Additional Instructions: Please return to the Emergency Department if symptoms worsen or any other concerns. Prescriptions: Amoxic-Pot Clav 875-125Mg [Augmentin 875-125] 1 tab PO Q12HR #20 tab Is patient prescribed a controlled substance at d/c from ED?: No Referrals: Jay Dan DO [Primary Care Provider] - 1-2 days Time of Disposition: 16:16
[2024-07-26 16:37] VITALS: BP 141/82; PULSE 67; RESP 17
== END 2024-07-26 16:56 | disposition home or self-care (01) ==
LOC: EC 14:20
DX: J40 Bronchitis, not specified as acute or chronic (principal); J04.0 Acute laryngitis; Z87.891 Personal history of nicotine dependence; Z88.5 Allergy status to narcotic agent
CPT/HCPCS: 36415; 71046; 80053; 85025; 85379; 87636; 96360; 99285